=== PATIENT | female | born 1955 | race Caucasian/White ===

== ENCOUNTER 2024-05-26 19:14 | Inpatient (IN) | payer MEDICARE, BC, SELFPAY ==
--- NOTE | ~2024-05-26 | XR_ITS ---
EXAMINATION: XR CHEST CLINICAL INFORMATION: Cough. COMPARISON: None available. TECHNIQUE: Portable AP view of the chest was obtained. FINDINGS: No focal infiltrate, effusion, or pneumothorax is identified. The cardiac silhouette appears normal in size. The aorta is mildly atherosclerotic and uncoiled, suggesting hypertension. Mild mamillation of the diaphragm. Mild degenerative changes of the spine. Bilateral shoulder arthroplasties. XR/XR chest 1V IMPRESSION: No acute finding. Electronically signed by: Mario Giraldo MD 05/26/2024 09:03 PM EDT
--- NOTE | ~2024-05-26 | CT_ITS ---
EXAMINATION: CT ABDOMEN AND PELVIS WITH CONTRAST CLINICAL INFORMATION: Diffuse abdominal pain. COMPARISON: None available. TECHNIQUE: Multidetector volumetric images were obtained from the superior aspect of the liver through the pubic symphysis following administration 85 mL of Omnipaque 350 intravenous contrast. Sagittal and coronal reformatted images were obtained on the technologist's workstation. Oral contrast: No This CT examination was performed using dose optimization techniques as appropriate, variously including the following: *Automated exposure control *Adjustment of mA and/or kV according to patient size (this includes techniques or standardized protocols for targeted exams where dose is matched to indication/reason for exam; i.e. extremities or head) *Use of iterative reconstruction technique DLP: 553 mGy-cm FINDINGS: LUNG BASES: The lung bases appear clear, with no evidence of inflammation or nodules. Are normal in size. Coronary arterial calcification. No pericardial effusion. LIVER, GALLBLADDER, AND BILIARY TREE: Benign-appearing calcification in the region of segment 4/gallbladder fossa/falciform ligament, possibly iatrogenic. Suspect fatty infiltration of the liver. The liver appears unremarkable in size and shape. No focal hepatic lesion or biliary ductal dilatation is appreciated. Status post cholecystectomy. PANCREAS: Unremarkable SPLEEN: Unremarkable ADRENAL GLANDS: Unremarkable KIDNEYS AND URETERS: The kidneys appear unremarkable in size, shape, and attenuation. No hydronephrosis, hydroureter, or calculi seen. BLADDER: Unremarkable GASTROINTESTINAL TRACT: Small to moderate hiatus hernia. Mildly dilated loops of large and small bowel, some with air-fluid levels. No evidence of mechanical obstruction. Scattered colonic diverticula without evidence of diverticulitis. Redundant cecum. Normal-appearing distal ileum. Vermiform appendix not clearly identified; no obvious evidence of appendicitis. ABDOMINAL WALL: No significant hernia is appreciated. LYMPH NODES: No evidence of adenopathy by size criteria. VASCULAR: Unremarkable PELVIC VISCERA: Unremarkable OSSEOUS STRUCTURES: Decreased bone mineral density. Severe compression deformity of T12, age indeterminate. Mild retropulsion and narrowing of the spinal canal at this level. Mild osteoarthritis of the hips. Degenerative changes of the spine with lumbar dextroscoliosis and grade 1 anterolisthesis of L4 on L5. CT/CT abdomen pelvis w IV con IMPRESSION: Question mild ileus. No acute inflammatory process identified. Decreased bone mineral density. Severe compression deformity of T12, age indeterminate. Mild retropulsion and narrowing of the spinal canal at this level. Recommend clinical correlation. Additional findings, as above. Electronically signed by: Mario Giraldo MD 05/26/2024 10:09 PM EDT RP
[2024-05-26 19:23] VITALS: BP 139/95; PULSE 103; RESP 17; TEMP 36.7; O2SAT 99
[2024-05-26 19:25] VITALS: BP 133/98; BP 139/95; PULSE 105; PULSE 92; RESP 20; TEMP 36.7; O2SAT 100; O2SAT 99; BMI 24.3
[2024-05-26 20:01] LABS: IDNOW Serial# 6674DD1D; Strep A Nucleic Acid Negative (Negative)
[2024-05-26 20:02] LABS: MANUAL DIFF FLAG NO
[2024-05-26 20:03] LABS: Basophils Percent Auto 0.7 % (0-2); Hematocrit 34.7 % (37.0-47.0); Hemoglobin 12.1 g/dl (12.0-16.0); Imm Gran Abs Auto 0.01 X10*3/uL (0.00-0.03); Imm Gran Pct Auto 0.2 % (0.0-0.4); Lymphocytes Absolute Auto 1.3 X10*3/uL (1.2-4.9); Mean Corpuscular HGB Conc 34.9 g/dl (31.0-35.0); Mean Corpuscular Volume 100.3 fL (80.0-98.0); Mean Platelet Volume 10.5 fL (9.4-12.3); Monocytes Absolute Auto 0.4 X10*3/uL (0.1-1.2); Neutrophils Absolute Auto 2.4 x10*3/uL (2.0-8.3); Neutrophils Percent Auto 58.1 % (45-73); Platelet Count 115 X10*3/uL (160-400); Red Blood Count 3.46 X10*6/uL (4.20-5.50); Red Cell Distribution Width 14.3 % (11.0-16.0); White Blood Count 4.1 X10*3/uL (4.8-10.8)
--- NOTE | 2024-05-26 20:07 | PC.NURSE ---
Patient BIBA from home for evaluation on nausea, vomiting, diarrhea, pain in right and left ears, sore throat, headache, productive cough x 5 days. Patient has Hx of COPD, not on home O2. EMS established 22 G IV line in L wrist. Patient received approximately 350 mg of NS IV and Zofran 4 mg IV en route to ED. Patient is a w/c bound. She is incontinent of urine. Labs drawn and sent to lab. Patient oriented to ED room, currently resting on a stretcher bed, watching TV, call ramírez in patient's reach. Plan of care ongoing.
[2024-05-26 20:25] LABS: Alanine Aminotransferase 50 U/L (0-31); Alkaline Phosphatase 195 U/L (39-117); Anion Gap 26 (12-20); Aspartate Amino Transferase 161 U/L (5-31); Bilirubin Total 1.9 mg/dL (0.0-1.0); Blood Urea Nitrogen 13 mg/dL (9-16); Calcium 9.1 mg/dL (8.4-10.2); Carbon Dioxide 16 mmol/L (22-29); Chloride 98 mmol/L (96-108); Creatinine Clr Calc Pharmacy 58.9; Estimated Glomerular Filt Rate > 60; Glucose Random 83 mg/dL (60-115); Lipase 122 U/L (8-78); Potassium 4.5 mmol/L (3.3-5.1); Sodium 135 mmol/L (135-145); Total Protein 6.7 g/dL (6.5-8.0)
[2024-05-26 20:33] LABS: Influenza A PCR NEGATIVE (Negative); Influenza B PCR NEGATIVE (Negative); Resp Syncy Virus RNA Qual PCR NEGATIVE (Negative); SARS COV2 PCR INHOUSE NEGATIVE (Negative)
[2024-05-26 21:09] VITALS: PULSE 82; RESP 16; O2SAT 100
[2024-05-26] MEDS: Albuterol Sulfate 2.5 MG, Albuterol/Iprat 2.5/0.5MG 3 ML 3 ML INHALE (21:09)
--- NOTE | 2024-05-26 21:09 | ED.GENADULT ---
HPI - General Adult General Chief complaint: Nausea/Vomiting/Diarrhea Stated complaint: Cold/flu like symptoms, IV in place, 12 lead non d Time Seen by Provider: 05/26/24 20:05 Source: patient, RN notes reviewed and old records reviewed Mode of arrival: EMS Limitations: no limitations History of Present Illness ED Provider: Tone RIUZ narrative: 68-year-old female with past medical history significant for hypertension, COPD not on supplemental oxygen presents for evaluation of ?I do not feel well. ? Patient reports that she has felt unwell for approximately 1 week She reports bilateral ear pain, sore throat, cough, shortness of breath She reports generalized abdominal pain but nausea vomiting, diarrhea She also endorses generalized weakness. She has not had any fevers, chills She reports a history of a cholecystectomy, denies any other abdominal surgeries No other complaints or concerns at this time Related Data Home Medications ?Medication ?Instructions ?Recorded ?Confirmed albuterol sulfate 90 mcg/actuation 2 inh inhalation Q4-6H PRN Dyspnea 05/26/24 05/26/24 aerosol inhaler atenolol 50 mg tablet 50 mg PO DAILY 05/26/24 05/26/24 fluticasone 250 mcg-salmeterol 50 1 ea inhalation BID 05/26/24 05/26/24 mcg/dose blistr powdr for inhalation loperamide 2 mg capsule 2 mg PO BID 05/26/24 05/26/24 mirtazapine 15 mg tablet 15 mg PO BEDTIME 05/26/24 05/26/24 tiotropium bromide 18 mcg capsule 1 cap inhalation DAILY 05/26/24 05/26/24 with inhalation device folic acid 1 mg tablet 1 mg PO DAILY 05/27/24 05/27/24 Allergies Allergy/AdvReac Type Severity Reaction Status Date / Time prednisone [PREDNISONE] Allergy Unknown UNKNOWN Verified 05/26/24 19:27 trazodone [TRAZODONE] Allergy Unknown UNKNOWN Verified 05/26/24 19:27 ENVIROMENTAL Allergy Mild SNEEZING Uncoded 05/26/24 19:27 Review of Systems Constitutional: Constitutional: Reports body ache(s), Denies chills, Denies fever(s), Denies headache(s), Reports lethargy, Reports malaise and Reports weakness Eyes: Eyes: Denies blurry vision ENT: Reports otalgia, Denies headache(s), Reports hoarseness and Reports sore throat Cardiovascular: Cardiovascular: Denies chest pain and Reports dyspnea Respiratory: Respiratory: Reports cough, Reports pain with cough, Reports dyspnea and Reports wheezing Gastrointestinal: Gastrointestinal: Reports abdominal pain, Denies hematochezia, Denies constipation, Reports diarrhea, Reports loose stools, Reports nausea and Reports vomiting Musculoskeletal: Musculoskeletal: Denies back pain Integumentary/Breasts: Skin/Breast: Denies rash Neurologic: Denies headache(s) and Reports weakness Allergic/Immunologic: Allergic/Immunologic: Reports wheezing PMFSH Social History Social History Alcohol intake: current Alcohol intake frequency: 3 or more drinks per day Alcohol type: hard liquor Smoked in Last 30 Days: Yes Use of substances other than those prescribed or required for medical reasons: No Advance Directives: No Advance Directives Information Provided: No Do you have a plan to hurt others: No Plan Physical Exam ED Vital Signs: Vital Signs - 24 hr 05/26/24 19:23 05/26/24 19:25 05/26/24 21:09 Temperature 98.1 F 98.1 F Pulse Rate 103 H 92 82 Respiratory Rate 17 20 16 Blood Pressure 139/95 H 139/95 H Pulse Oximetry 99 100 Oxygen Delivery Method Room Air Room Air 05/26/24 21:19 Temperature Pulse Rate Respiratory Rate 16 Blood Pressure Pulse Oximetry Oxygen Delivery Method BMI result Body Mass Index 24.3 Const General: no acute distress, alert and awake Nutritional Appearance: well nourished Orientation/consciousness: patient oriented x3 HENMT Other: Mild retropharyngeal erythema, no evidence of abscess Head: Yes normocephalic and Yes atraumatic Ears: external ears normal and TM's normal bilaterally Eyes Eyelids: Yes eyelids normal Conjunctivae: conjunctivae normal Sclerae: sclerae normal Corneas: corneas normal Pupils: Equal, round and reactive pupils present EOM: EOMs intact bilaterally Neck Neck: Yes full ROM Resp Other: Mild expiratory wheeze throughout Effort & Inspection: normal respiratory effort, able to speak in complete sentences and not labored Cardio Rate: regular rate Rhythm: regular rhythm GI Palpation (GI): Soft to palpation, not firm, Tenderness to palpation present (GI) (diffusely), no guarding and not rigid Skin General skin exam: elasticity normal Neuro General: patient oriented x3 Cranial nerves: Yes Equal, round and reactive pupils present and Yes Bilaterally intact EOM present Cognition (Neuro): normal cognition Extrem Other: Moving all extremities well without any obvious deformities Course Reevaluation(s) Reevaluation #1: It was brought to my attention by respiratory staff that the patient has been making suicidal comments. The patient states that she wants a ?hospice consult because she does not want to live anymore. I asked the patient about this and she has been having passive suicidal thoughts. She does not have a plan for SI. She will be placed with a one-to-one sitter. We will evaluate the patient medically and then proceed with care team consult if medically cleared Time: 21:18 Reevaluation #2: CT findings of vertebral fracture with retropulsion are a chronic finding. The patient is wheelchair-bound secondary to a spinal cord injury Time: 22:16 Reevaluation #3: Patient's lactic acid was resulted critical at 3.8, I ordered an additional L of fluid. Her bicarb was 13 in her pH was compensated and was within normal limits. I do not feel this is related to sepsis, this is most likely related to alcoholic ketoacidosis. Given the ileus on CT scan with these findings I discussed with the hospitalist for admission. Time: 23:16 Medications Administered Discontinued Medications Generic Name Dose Route Start Last Admin Trade Name Freq PRN Reason Stop Dose Admin Albuterol Sulfate 2.5 mg/ 0 mg 05/26/24 21:06 05/26/24 21:09 Albuterol/Ipratropium 3 ml INHALE 05/26/24 21:07 1 dose ONCE ONE Administration Sodium Chloride 1,000 mls @ 999 mls/hr 05/26/24 21:00 05/26/24 22:30 Ns IV 05/26/24 22:00 Infused .Q1H1M RAY Infusion Sodium Chloride 1,000 mls @ 999 mls/hr 05/26/24 23:00 05/26/24 23:20 Ns IV 05/27/24 00:00 999 mls/hr .Q1H1M RAY Administration Iohexol 85 ml 05/26/24 21:39 05/26/24 21:40 Iohexol 350 Mg/Ml 100 Ml Infus..Btl IV 05/26/24 21:40 85 ml ONCE ONE Administration Morphine Sulfate 4 mg 05/26/24 20:54 05/26/24 21:19 Morphine Sulfate 4 Mg/Ml Cartridge IVPUSH 05/26/24 20:55 4 mg ONCE ONE Administration Protocol Ondansetron HCl 4 mg 05/26/24 20:54 05/26/24 21:19 Ondansetron Hcl 4 Mg/2 Ml Vial IVPUSH 05/26/24 20:55 4 mg ONCE ONE Administration Medical Decision Making Medical Decision Making [facility] Narrative: 68-year-old female who is appearing chronically ill presenting for evaluation of multiple complaints including ear pain, sore throat, cough shortness of breath abdominal pain, nausea vomiting. The patient's vital signs are stable. She is not hypoxic, she is afebrile. Her viral swabs are negative for flu, COVID, RSV. She is negative for strep pharyngitis. Chest x-ray shows no evidence of pneumonia or pleural effusions suggestive of CHF.. She has a mild thrombocytopenia. Unclear origin at this time, possibly related to chronic disease. Chemistries are significant for an anion gap of 26, a CO2 of 16. Unclear etiology, ALEJANDRO lactic acidosis. Ethanol level is pending. Electrolytes are within normal limits, the patient does have a mild transaminitis. T bili is elevated to 1.9. The patient is status post cholecystectomy already. Differential Diagnosis Differential Diagnoses: The differential diagnosis associated with the presentation includes COPD exacerbation Pneumonia Viral syndrome CHF Abdominal pain Enteritis Dehydration Alcoholic liver disease Lab Data 05/26/24 19:58 05/26/24 19:58 Labs: Lab Results 05/26/24 05/26/24 05/26/24 Range/Units 19:49 19:58 22:20 WBC 4.1 L (4.8-10.8) X10*3/uL RBC 3.46 L (4.20-5.50) X10*6/uL Hgb 12.1 (12.0-16.0) g/dl Hct 34.7 L (37.0-47.0) % MCV 100.3 H (80.0-98.0) fL MCH 35.0 H (27.0-33.0) pg MCHC 34.9 (31.0-35.0) g/dl RDW 14.3 (11.0-16.0) % Plt Count 115 L (160-400) X10*3/uL MPV 10.5 (9.4-12.3) fL Immature Gran % (Auto) 0.2 (0.0-0.4) % Neut % (Auto) 58.1 (45-73) % Lymph % (Auto) 31.0 (20-40) % Izard % (Auto) 10.0 (2-11) % Eos % (Auto) 0.0 (0-4) % Baso % (Auto) 0.7 (0-2) % Lymph # (Auto) 1.3 (1.2-4.9) X10*3/uL Izard # (Auto) 0.4 (0.1-1.2) X10*3/uL Eos # (Auto) 0.0 (0.0-0.4) X10*3/uL Baso # (Auto) 0.0 (0.0-0.2) X10*3/uL Abs Immat Gran (auto) 0.01 (0.00-0.03) X10*3/uL Absolute Neuts (auto) 2.4 (2.0-8.3) x10*3/uL Absolute Nucleated RBC 0.000 (0.0-0.012) X10*3/uL Nucleated RBC % (auto) 0.0 (0.0-0.2) /100WBC VBG pH (7.32-7.43) VBG pCO2 mmHg VBG pO2 mmHg VBG HCO3 (22-26) mmol/L VBG O2 Saturation % VBG Base Excess mmol/L Sodium 135 (135-145) mmol/L Potassium 4.5 (3.3-5.1) mmol/L Chloride 98 (96-108) mmol/L Carbon Dioxide 16 L (22-29) mmol/L Anion Gap 26 H (12-20) BUN 13 (9-16) mg/dL Creatinine 0.74 (0.5-1.4) mg/dL Estim Creat Clear Calc 58.9 Estimated GFR > 60 Random Glucose 83 (60-115) mg/dL Lactic Acid (0.5-2.0) mmol/L Calcium 9.1 (8.4-10.2) mg/dL Total Bilirubin 1.9 H (0.0-1.0) mg/dL AST 161 H (5-31) U/L ALT 50 H (0-31) U/L Alkaline Phosphatase 195 H (39-117) U/L Total Protein 6.7 (6.5-8.0) g/dL Albumin 4.0 (3.5-5.0) g/dL Lipase 122 H (8-78) U/L Specimen Comment Acetaminophen (<30) mcg/mL Ethyl Alcohol 127 mg/dL Influenza Type A (PCR) NEGATIVE (Negative) Influenza Type B (PCR) NEGATIVE (Negative) RSV RNA Qual (PCR) NEGATIVE (Negative) SARS-CoV-2 RNA (RT-PCR) NEGATIVE (Negative) S. pyogenes GrpA GREGORY Negative (Negative) 05/26/24 05/26/24 05/26/24 Range/Units 22:21 22:24 23:50 WBC (4.8-10.8) X10*3/uL RBC (4.20-5.50) X10*6/uL Hgb (12.0-16.0) g/dl Hct (37.0-47.0) % MCV (80.0-98.0) fL MCH (27.0-33.0) pg MCHC (31.0-35.0) g/dl RDW (11.0-16.0) % Plt Count (160-400) X10*3/uL MPV (9.4-12.3) fL Immature Gran % (Auto) (0.0-0.4) % Neut % (Auto) (45-73) % Lymph % (Auto) (20-40) % Izard % (Auto) (2-11) % Eos % (Auto) (0-4) % Baso % (Auto) (0-2) % Lymph # (Auto) (1.2-4.9) X10*3/uL Izard # (Auto) (0.1-1.2) X10*3/uL Eos # (Auto) (0.0-0.4) X10*3/uL Baso # (Auto) (0.0-0.2) X10*3/uL Abs Immat Gran (auto) (0.00-0.03) X10*3/uL Absolute Neuts (auto) (2.0-8.3) x10*3/uL Absolute Nucleated RBC (0.0-0.012) X10*3/uL Nucleated RBC % (auto) (0.0-0.2) /100WBC VBG pH 7.39 (7.32-7.43) VBG pCO2 22 mmHg VBG pO2 102 mmHg VBG HCO3 13 L (22-26) mmol/L VBG O2 Saturation 99.0 % VBG Base Excess -8.8 mmol/L Sodium (135-145) mmol/L Potassium (3.3-5.1) mmol/L Chloride (96-108) mmol/L Carbon Dioxide (22-29) mmol/L Anion Gap (12-20) BUN (9-16) mg/dL Creatinine (0.5-1.4) mg/dL Estim Creat Clear Calc Estimated GFR Random Glucose (60-115) mg/dL Lactic Acid 3.8 H* (0.5-2.0) mmol/L Calcium (8.4-10.2) mg/dL Total Bilirubin (0.0-1.0) mg/dL AST (5-31) U/L ALT (0-31) U/L Alkaline Phosphatase (39-117) U/L Total Protein (6.5-8.0) g/dL Albumin (3.5-5.0) g/dL Lipase (8-78) U/L Specimen Comment DELAY Acetaminophen < 3 (<30) mcg/mL Ethyl Alcohol mg/dL Influenza Type A (PCR) (Negative) Influenza Type B (PCR) (Negative) RSV RNA Qual (PCR) (Negative) SARS-CoV-2 RNA (RT-PCR) (Negative) S. pyogenes GrpA GREGORY (Negative) Radiology Impression Discussion of test interpretation with radiology: I have reviewed the radiologist's reading. Radiologist Impression: CT/CT abdomen pelvis w IV con IMPRESSION: Question mild ileus. No acute inflammatory process identified. Decreased bone mineral density. Severe compression deformity of T12, age indeterminate. Mild retropulsion and narrowing of the spinal canal at this level. Recommend clinical correlation. Additional findings, as above. Discharge Plan Discharge Clinical Impression: High anion gap metabolic acidosis, Alcohol use disorder Patient Disposition: Admitted As Inpatient Print Language: Malaysian
[2024-05-26 21:19] VITALS: RESP 16
[2024-05-26] MEDS: Morphine Sulfate 4 MG/ML CARTRIDGE IVPUSH (21:19)
[2024-05-26] MEDS: ondansetron HCL 4 MG/2 ML VIAL IVPUSH (21:19)
[2024-05-26] MEDS: 0.9 % Sodium Chloride 1,000 ML 999 ML IV ×2 (21:20→23:20)
[2024-05-26] MEDS: iohexoL 350 MG/ML 100 ML INFUS..BTL 85 ML IV (21:40)
[2024-05-26 22:28] LABS: Venous Blood Gas Refer to POC result
[2024-05-26 22:29] LABS: VBG Base Excess -8.8 mmol/L; VBG HCO3 13 mmol/L (22-26); VBG pCO2 22 mmHg; VBG pH 7.39 (7.32-7.43); VBG pO2 102 mmHg
[2024-05-26 22:43] LABS: Ethanol 127 mg/dL
[2024-05-26 22:46] LABS: Lactic Acid 3.8 mmol/L (0.5-2.0)
[2024-05-26 22:53] LABS: Acetaminophen LAB < 3 mcg/mL (<30)
[2024-05-26 23:51] LABS: Delay - Chemistry DELAY
[2024-05-27] VITALS (8 sets, daily range): BP systolic 125–178; BP diastolic 69–95; PULSE 75–88; RESP 16–20; TEMP 36.5–36.9; O2SAT 95–100
[2024-05-27 00:27] LABS: Reflex Lactate? Lactic Acid Added
[2024-05-27 00:42] LABS: Beta-Hydroxybutyrate 5.67 mmol/L (0.02-0.27)
[2024-05-27] MEDS: Thiamine HCL 500 MG in 0.9 % Sodium Chloride 100 ML 210 MG IV (01:28)
--- NOTE | 2024-05-27 01:58 | P.HPHOSP_ITS ---
History of Present Illness Date of Service: 05/27/24 Chief Complaint: Not feeling well This is a 68-year-old female with pertinent history of alcohol use disorder, hypertension, COPD not on home oxygen, mood disorder, tobacco use disorder who presents to the emergency department for evaluation of not feeling well . Patient has multiple complaints and states she has not been feeling well for a week. States she has had upper respiratory symptoms with runny nose, sore throat and headache. Soon it progressed and patient started having dyspnea which was worse with exertion and wheezing. Has associated cough with minimal clear sputum production. Patient admits generalized weakness with poor p.o. intake. States her last alcoholic drink was 1 day prior to presentation. No history of alcohol withdrawal seizures. No fever, chills, chest discomfort, palpitations, abdominal pain, changes in urinary or bowel habits. In the emergency department, patient was initiated on phenobarb protocol. Also found to have anion gap metabolic acidosis. Review of Systems 2 Constitutional: Constitutional: Reports fatigue, Reports lethargy, Reports malaise, Reports poor appetite and Reports weakness Cardiovascular: Cardiovascular: Reports dyspnea on exertion Respiratory: Respiratory: Reports cough, Reports dyspnea on exertion and Reports wheezing Gastrointestinal: Gastrointestinal: Reports no additional gastrointestinal complaints Genitourinary: Genitourinary: Reports no additional female genitourinary complaints Neurologic: Reports weakness Endocrine: Endocrine: Reports fatigue Allergic/Immunologic: Allergic/Immunologic: Reports wheezing [facility] Medical History (Updated 05/27/24 @ 03:00 by Edi Mancini MD) Mood disorder Tobacco use disorder COPD (chronic obstructive pulmonary disease) Alcohol use disorder Hypertension Pertinent family history: No family history of early CAD Social History Alcohol intake: current Alcohol intake frequency: 3 or more drinks per day Alcohol type: hard liquor Smoked in Last 30 Days: Yes Use of substances other than those prescribed or required for medical reasons: No Advance Directives: No Advance Directives Information Provided: No Do you have a plan to hurt others: No Plan Meds Allergies Allergy/AdvReac Type Severity Reaction Status Date / Time prednisone [PREDNISONE] Allergy Unknown UNKNOWN Verified 05/26/24 19:27 trazodone [TRAZODONE] Allergy Unknown UNKNOWN Verified 05/26/24 19:27 ENVIROMENTAL Allergy Mild SNEEZING Uncoded 05/26/24 19:27 Active Medications: Current Medications Dextrose/Lactated Ringer's (D5lr) 1,000 mls @ 125 mls/hr IVCONT .Q8H ONE Stop: 05/27/24 09:55 Pharmacy Consult (Consult Rx Etoh Phenob Im/Po) 1 each MISCELLANE ONCE PRN; Protocol PRN Reason: Consult order Home Medications ?Medication ?Instructions ?Recorded ?Confirmed ?Last Taken ?Type albuterol sulfate 90 mcg/actuation 2 inh inhalation Q4-6H PRN Dyspnea 05/26/24 05/26/24 Unknown History aerosol inhaler atenolol 50 mg tablet 50 mg PO DAILY 05/26/24 05/26/24 Unknown History fluticasone 250 mcg-salmeterol 50 1 ea inhalation BID 05/26/24 05/26/24 Unknown History mcg/dose blistr powdr for inhalation loperamide 2 mg capsule 2 mg PO BID 05/26/24 05/26/24 Unknown History mirtazapine 15 mg tablet 15 mg PO BEDTIME 05/26/24 05/26/24 Unknown History tiotropium bromide 18 mcg capsule 1 cap inhalation DAILY 05/26/24 05/26/24 Unknown History with inhalation device folic acid 1 mg tablet 1 mg PO DAILY 05/27/24 05/27/24 Unknown History Physical Exam 2 Vital Signs and Narrative: Vital Signs: Last Vital Signs Temp 98.1 F 05/26/24 19:25 Pulse 82 05/26/24 21:09 Resp 16 05/26/24 21:19 BP 139/95 H 05/26/24 19:25 Pulse Ox 100 05/26/24 19:25 O2 Del Method Room Air 05/26/24 19:25 BMI result Body Mass Index 24.3 Middle-aged female lying in bed in mild distress Neck supple, no JVD Regular rate and rhythm, S1-S2 heard Bilateral wheezing present Abdomen soft nontender, no guarding, no rigidity Patient is awake, alert and oriented to self, place, time and person ; no focal motor deficit Psych: Normal mood No pedal edema Results Labs 05/27/24 02:29 05/26/24 19:58 Labs: Laboratory Results - last 24 hr 05/26/24 05/26/24 05/26/24 19:49 19:58 22:20 MCV 100.3 H MCH 35.0 H MCHC 34.9 RDW 14.3 Plt Count 115 L MPV 10.5 Immature Gran % (Auto) 0.2 Neut % (Auto) 58.1 Lymph % (Auto) 31.0 Aiken % (Auto) 10.0 Eos % (Auto) 0.0 Baso % (Auto) 0.7 Lymph # (Auto) 1.3 Aiken # (Auto) 0.4 Eos # (Auto) 0.0 Baso # (Auto) 0.0 Abs Immat Gran (auto) 0.01 Absolute Neuts (auto) 2.4 Absolute Nucleated RBC 0.000 Nucleated RBC % (auto) 0.0 VBG pH VBG pCO2 VBG pO2 VBG HCO3 VBG O2 Saturation VBG Base Excess Anion Gap 26 H Estim Creat Clear Calc 58.9 Estimated GFR > 60 Random Glucose 83 Lactic Acid Calcium 9.1 Total Bilirubin 1.9 H AST 161 H ALT 50 H Alkaline Phosphatase 195 H Total Protein 6.7 Albumin 4.0 Lipase 122 H Beta-Hydroxybutyrate 5.67 H Specimen Comment Acetaminophen Ethyl Alcohol 127 Influenza Type A (PCR) NEGATIVE Influenza Type B (PCR) NEGATIVE RSV RNA Qual (PCR) NEGATIVE SARS-CoV-2 RNA (RT-PCR) NEGATIVE S. pyogenes GrpA GREGORY Negative 05/26/24 05/26/24 05/26/24 22:21 22:24 23:50 MCV MCH MCHC RDW Plt Count MPV Immature Gran % (Auto) Neut % (Auto) Lymph % (Auto) Aiken % (Auto) Eos % (Auto) Baso % (Auto) Lymph # (Auto) Aiken # (Auto) Eos # (Auto) Baso # (Auto) Abs Immat Gran (auto) Absolute Neuts (auto) Absolute Nucleated RBC Nucleated RBC % (auto) VBG pH 7.39 VBG pCO2 22 VBG pO2 102 VBG HCO3 13 L VBG O2 Saturation 99.0 VBG Base Excess -8.8 Anion Gap Estim Creat Clear Calc Estimated GFR Random Glucose Lactic Acid 3.8 H* Calcium Total Bilirubin AST ALT Alkaline Phosphatase Total Protein Albumin Lipase Beta-Hydroxybutyrate Specimen Comment DELAY Acetaminophen < 3 Ethyl Alcohol Influenza Type A (PCR) Influenza Type B (PCR) RSV RNA Qual (PCR) SARS-CoV-2 RNA (RT-PCR) S. pyogenes GrpA GREGORY Imaging Radiologist's Impressions: Impressions Chest X-Ray 05/26/24 19:35 IMPRESSION: No acute finding. Electronically signed by: Mario Giraldo MD 05/26/2024 09:03 PM EDT RP Abdomen/Pelvis CT 05/26/24 20:54 IMPRESSION: Question mild ileus. No acute inflammatory process identified. Decreased bone mineral density. Severe compression deformity of T12, age indeterminate. Mild retropulsion and narrowing of the spinal canal at this level. Recommend clinical correlation. Additional findings, as above. Electronically signed by: Mario Giraldo MD 05/26/2024 10:09 PM EDT RP Assessment and Plan (1) COPD exacerbation: Status: Acute (2) Alcoholic ketoacidosis: Status: Acute (3) Lactic acidosis: Status: Acute (4) Alcohol withdrawal: Status: Acute Plan This is a 68-year-old female with pertinent history of alcohol use disorder, hypertension, COPD not on home oxygen, mood disorder, tobacco use disorder who presents to the emergency department for evaluation of not feeling well . #. Acute exacerbation of COPD: Initiating systemic steroids, scheduled and p.r.n. DuoNebs. Continue home inhaler #. Alcoholic ketoacidosis: Initiating dextrose infused fluids. Repeat blood gas in a.m. #. Acute lactic acidosis: No sepsis. Albuterol use. Resuscitated with IV crystalloids #. Alcohol use disorder with concerns for alcohol withdrawal: Initiated on phenobarb protocol in the ER. Monitor CIWA. Consulting Addiction Team. Also initiated thiamine, folic acid #. Macrocytosis, thrombocytopenia and elevated liver enzymes due to alcohol use #. Hypertension: On atenolol #. Tobacco use disorder: Counseled regarding cessation. Nicotine patch while in the hospital #. Mood disorder: Continue home mood stabilizers Med rec pending DVT prophylaxis: Lovenox Full code Admit as inpatient and will require two night minimum hospital stay for monitoring of respiratory status, correction of acid-based disturbance, treatment of alcohol withdrawal (as above), which is not possible in a lesser acute setting. Quality Stroke Does the patient have a stroke diagnosis?: No VTE Prior VTE?: No VTE Risk Level:: Medical - moderate - high VTE Device Contraindication: Treatment Not Indicated VTE Drug Contraindication: N/A - Med Ordered
[2024-05-27] MEDS: Dextrose 5 % and Lactated Ring 1,000 ML 125 ML IVCONT (02:11)
[2024-05-27 02:32] LABS: MANUAL DIFF FLAG NO
[2024-05-27 02:34] LABS: Basophils Percent Auto 0.5 % (0-2); Eosinophils Percent Auto 0.3 % (0-4); Hematocrit 32.1 % (37.0-47.0); Hemoglobin 11.2 g/dl (12.0-16.0); Imm Gran Abs Auto 0.01 X10*3/uL (0.00-0.03); Imm Gran Pct Auto 0.3 % (0.0-0.4); Lymphocytes Absolute Auto 0.9 X10*3/uL (1.2-4.9); Lymphocytes Percent Auto 24.1 % (20-40); Mean Corpuscular HGB Conc 34.9 g/dl (31.0-35.0); Mean Corpuscular Hemoglobin 35.1 pg (27.0-33.0); Mean Corpuscular Volume 100.6 fL (80.0-98.0); Mean Platelet Volume 10.7 fL (9.4-12.3); Monocytes Absolute Auto 0.4 X10*3/uL (0.1-1.2); Monocytes Percent Auto 9.5 % (2-11); Neutrophils Absolute Auto 2.4 x10*3/uL (2.0-8.3); Neutrophils Percent Auto 65.3 % (45-73); Platelet Count 113 X10*3/uL (160-400); Red Blood Count 3.19 X10*6/uL (4.20-5.50); Red Cell Distribution Width 14.1 % (11.0-16.0); White Blood Count 3.7 X10*3/uL (4.8-10.8)
[2024-05-27 02:49] LABS: Anion Gap 24 (12-20); Blood Urea Nitrogen 12 mg/dL (9-16); Calcium 8.7 mg/dL (8.4-10.2); Carbon Dioxide 15 mmol/L (22-29); Chloride 100 mmol/L (96-108); Creatinine Clr Calc Pharmacy 62.3; Estimated Glomerular Filt Rate > 60; Glucose Random 97 mg/dL (60-115); Potassium 3.8 mmol/L (3.3-5.1); Sodium 135 mmol/L (135-145)
[2024-05-27 02:51] LABS: ~Lactic Acid-LAB USE ONLY 3.8 mmol/L (0.5-2.0)
[2024-05-27] MEDS: PHENobarbitaL sodium 130 MG/ML IM ONCE 191 MG IM (03:07)
[2024-05-27] MEDS: diphenhydrAMINE HCL 25 MG CAPSULE 50 MG PO (03:07)
[2024-05-27] MEDS: Nicotine 14 MG PATCH.TD24 TRANSDERMA (04:30)
[2024-05-27] MEDS: Azithromycin 500 MG in 0.9 % Sodium Chloride 250 ML 125 MG IV ×2 (04:30→22:52)
[2024-05-27] MEDS: methylPREDNISolone Sod Succ 40 MG/ML VIAL IVPUSH ×2 (04:30→13:06)
[2024-05-27 04:31] LABS: Reflex Lactate? 2 Y
[2024-05-27 05:24] LABS: Venous Blood Gas Refer to POC result
[2024-05-27 05:28] LABS: VBG Base Excess -7.5 mmol/L; VBG HCO3 16 mmol/L (22-26); VBG pCO2 28 mmHg; VBG pH 7.36 (7.32-7.43); VBG pO2 173 mmHg
[2024-05-27 05:38] LABS: ~Lactic Acid-LAB USE ONLY 2.6 mmol/L (0.5-2.0)
[2024-05-27] MEDS: PHENobarbitaL sodium 130 MG/ML VIAL IM Q3Hx2 143 MG IM ×2 (07:37→10:52)
[2024-05-27] MEDS: Albuterol/Iprat 2.5/0.5MG 3 ML AMPUL.NEB INHALE ×3 (07:39→15:07)
[2024-05-27] MEDS: 0.9 % Sodium Chloride Flush 3 ML SYRINGE IVFLUSH (07:40)
[2024-05-27 09:25] LABS: Magnesium 1.5 mg/dL (1.6-2.6)
[2024-05-27] MEDS: Multivitamin TABLET 1 TAB PO (09:37)
[2024-05-27] MEDS: Folic Acid 1 MG TABLET PO (09:37)
[2024-05-27] MEDS: Thiamine HCL 100 MG TABLET PO (09:37)
[2024-05-27] MEDS: Enoxaparin Sodium 40 MG/0.4 ML SYRINGE SUBCUT (09:37)
--- NOTE | 2024-05-27 10:22 | PHA.MEDREC ---
Addendum entered by Melly Kumar [facility] 05/27/24 10:33: reviewed by [facility]. Called buffy to confirm if pt was still supposed to be on acamprosate, said she got it for 3 months and then hasn't filled since March 2024 and has no refills left on it, left that unconfirmed. Original Note: Pharmacy Consult ? Medication Reconciliation Pharmacy has reviewed the medication reconciliation done by nursing. Patient was a poor historian she didn't know any of her medication. patient's is blind so he can't see patient medications. Utilized claim to confirm med list.
--- NOTE | 2024-05-27 11:28 | PM.EVENT ---
Event Note Date of Service: 05/27/24 Event Note: Day hospitalist update S: c/o nausea + depression cough improved O: Temp Pulse Resp BP Pulse Ox O2 Del Method 98.2 F 81 18 134/69 100 Room Air 05/27/24 09:41 05/27/24 11:19 05/27/24 11:19 05/27/24 09:41 05/27/24 09:41 05/27/24 09:41 Gen: in no acute distress HEENT: sclera anicteric, moist mucus membranes Neck: supple Lungs: diminished Heart: regular rate and rhythm, no murmurs Abd: soft, non-tender, non-distended Ext: no edema Skin: warm/well-perfused Neuro: alert and oriented x3, no focal findings Psych: restricted affect A/P: d1 8-year-old female with pertinent history of alcohol use disorder, hypertension, COPD not on home oxygen, mood disorder, tobacco use disorder who presents to the emergency department for evaluation of not feeling well . d1 68yo F with AUD, HTN, COPD, mood disorder, tobacco abuse presenting with malaise + cough, dyspnea, wheeze; found to have EtOH withdrawal + ketoacidosis acute COPD exacerbation - continue steroids, standing/prn nebs, home inhalers alcoholic ketoacidosis acute lactic acidosis due to alcohol - continue D5LR, repeat BMP in AM AUD with withdrawal - phenobarbital taper, thiamine, folate, Addiction Medicine consultation alcoholic hepatitis - mild; continue to monitor LFTs thrombocytopenia - mild; due to myelosuppression from EtOH; continue monitor CBC HTN - atenolol tobacco abuse - NRT depression with SI - continue mirtazapine; CARE Team consult when medically cleared VTE ppx - LMWH dispo - TBD In my clinical judgment, the patient requires continued hospitalization for the following reasons: acidosis, inpt EtOH withdrawal treatment Time Spent With Patient Time: Total time managing care of this patient today ____ minutes.
[2024-05-27 12:18] LABS: Amphetamine Screen Urine Not Detected (Not Detect); Barbiturates, Urine POSITIVE (Not Detect); Benzodiazepines Screen Urine Not Detected (Not Detect); Buprenorphine Scr Not Detected (Not Detect); Cannabinoid Screen Urine Not Detected (Not Detect); Cocaine Screen Urine Not Detected (Not Detect); Fentanyl, urine Not Detected (Not Detect); Methadone Screen, Urine Not Detected (Not Detect); Opiate Screen Urine POSITIVE (Not Detect); Oxycodone Screen Urine Not Detected (Not Detect); Phencyclidine Screen Urine Not Detected (Not Detect)
[2024-05-27] MEDS: Dextrose 5 % and Lactated Ring 1,000 ML 80 ML IVCONT (13:06)
--- NOTE | 2024-05-27 17:05 | MHC.EDTECH ---
Patient cleaned and repositioned
[2024-05-27] MEDS: PHENobarbitaL 30 MG TABLET PO (18:45)
[2024-05-27] MEDS: Mirtazapine 15 MG TABLET PO (22:52)
[2024-05-27] MEDS: Loperamide HCl 2 MG CAPSULE PO (22:52)
[2024-05-28] MEDS: Acetaminophen 325 MG TABLET 650 MG PO (00:15)
[2024-05-28] MEDS: Dextrose 5 % and Lactated Ring 1,000 ML 80 ML IVCONT ×2 (00:15→13:33)
[2024-05-28] MEDS: Melatonin 3 MG TABLET 6 MG PO (00:15)
[2024-05-28 01:50] VITALS: BMI 28.2
[2024-05-28 03:00] VITALS: BP 129/61; PULSE 67; RESP 16; TEMP 36.3; O2SAT 95
[2024-05-28 05:49] LABS: Hematocrit 31.1 % (37.0-47.0); Mean Corpuscular HGB Conc 35.4 g/dl (31.0-35.0); Mean Corpuscular Hemoglobin 34.3 pg (27.0-33.0); Mean Corpuscular Volume 96.9 fL (80.0-98.0); Mean Platelet Volume 11.2 fL (9.4-12.3); NRBC Pct Auto 0.3 /100WBC (0.0-0.2); Red Blood Count 3.21 X10*6/uL (4.20-5.50)
[2024-05-28 05:51] LABS: Platelet Count 97 X10*3/uL (160-400)
[2024-05-28 05:52] LABS: Venous Blood Gas Refer to POC result
[2024-05-28 06:00] LABS: VBG Base Excess 6.8 mmol/L; VBG HCO3 27 mmol/L (22-26); VBG pCO2 25 mmHg; VBG pH 7.62 (7.32-7.43); VBG pO2 230 mmHg
[2024-05-28 06:36] LABS: Alanine Aminotransferase 67 U/L (0-31); Albumin Level 3.3 g/dL (3.5-5.0); Alkaline Phosphatase 158 U/L (39-117); Anion Gap 17 (12-20); Aspartate Amino Transferase 215 U/L (5-31); Bilirubin Total 2.3 mg/dL (0.0-1.0); Blood Urea Nitrogen 7 mg/dL (9-16); Calcium 9.2 mg/dL (8.4-10.2); Carbon Dioxide 21 mmol/L (22-29); Chloride 95 mmol/L (96-108); Creatinine Clr Calc Pharmacy 64.9; Estimated Glomerular Filt Rate > 60; Glucose Random 223 mg/dL (60-115); Magnesium 1.4 mg/dL (1.6-2.6); Potassium 3.3 mmol/L (3.3-5.1); Sodium 130 mmol/L (135-145); Total Protein 5.9 g/dL (6.5-8.0)
[2024-05-28] MEDS: Magnesium Sulfate/H2O 2 GM/50 ML PIGGYBACK IV (06:48)
[2024-05-28 06:55] LABS: Folate 6.2 ng/mL (> or = 4.0); Vitamin B12 317 pg/mL (200-900)
[2024-05-28 07:47] VITALS: BP 149/67; PULSE 77; RESP 12; TEMP 36.7; O2SAT 99
[2024-05-28] MEDS: 0.9 % Sodium Chloride Flush 3 ML SYRINGE IVFLUSH ×2 (07:59→17:06)
[2024-05-28 09:35] VITALS: BP 158/69; PULSE 77
[2024-05-28] MEDS: Folic Acid 1 MG TABLET PO (09:35)
[2024-05-28] MEDS: Loperamide HCl 2 MG CAPSULE PO ×2 (09:35→20:58)
[2024-05-28] MEDS: Thiamine HCL 100 MG TABLET PO (09:35)
[2024-05-28] MEDS: atenoloL 50 MG TABLET PO (09:35)
[2024-05-28] MEDS: PHENobarbitaL 30 MG TABLET PO ×2 (09:35→20:57)
[2024-05-28] MEDS: Multivitamin TABLET 1 TAB PO (09:35)
[2024-05-28] MEDS: Magnesium Oxide 400 MG TABLET PO ×2 (09:40→17:07)
[2024-05-28] MEDS: Enoxaparin Sodium 40 MG/0.4 ML SYRINGE SUBCUT (09:40)
[2024-05-28] MEDS: Nicotine 14 MG PATCH.TD24 TRANSDERMA (09:43)
--- NOTE | 2024-05-28 10:39 | HO.PM.IMPN ---
Subjective Subjective Date of Service: 05/28/24 Interval History: c/o nausea, not tolerating solids c/o burning epigastric pain breathing improved Review of Systems Review of Systems: Yes all other systems are reviewed and are negative Physical Exam Vital Signs: Vital Signs: Last Vital Signs Temp 98.1 F 05/28/24 07:47 Pulse 77 05/28/24 09:35 Resp 12 05/28/24 07:47 BP 158/69 H 05/28/24 09:35 Pulse Ox 99 05/28/24 07:47 O2 Del Method Room Air 05/28/24 07:47 BMI result Body Mass Index 28.2 Gen: in no acute distress HEENT: sclera anicteric, moist mucus membranes Neck: supple Lungs: diminished Heart: regular rate and rhythm, no murmurs Abd: soft, tender epigastrium, no rebound, non-distended Ext: no edema Skin: warm/well-perfused Neuro: alert and oriented x3, no focal findings Psych: restricted affect Objective Data Active Medications Acetaminophen (Acetaminophen 325 Mg Tablet) 650 mg PO Q6H PRN PRN Reason: Pain, Mild (Pain Scale 1-3), fever or headache Last Admin: 05/28/24 00:15 Dose: 650 mg Documented By: SUSANNE Albuterol Sulfate (Albuterol Sulfate 90 Mcg 8 Gm Inhaler) 2 puff INHALE Q4H PRN PRN Reason: Dyspnea Albuterol/Ipratropium (Albuterol/Iprat 2.5/0.5mg 3 Ml Ampul.Neb) 3 ml INHALE Q4H PRN PRN Reason: Wheezing Atenolol (Atenolol 50 Mg Tablet) 50 mg PO DAILY [facility]; Protocol Last Admin: 05/28/24 09:35 Dose: 50 mg Documented By: HERNAN Calcium Carbonate (Calcium Carbonate 750 Mg Tab.Chew) 750 mg PO Q4H PRN PRN Reason: Heartburn Enoxaparin Sodium (Enoxaparin Sodium 40 Mg/0.4 Ml Syringe) 40 mg SUBCUT Q24H [facility] Last Admin: 05/28/24 09:40 Dose: 40 mg Documented By: HERNAN Fluticasone/Vilanterol (Fluticasone/Vilanterol 100/25 Blst.W.Dev) 1 puff INHALE RDAILY [facility] Folic Acid (Folic Acid 1 Mg Tablet) 1 mg PO DAILY [facility] Last Admin: 05/28/24 09:35 Dose: 1 mg Documented By: HERNAN Folic Acid (Folic Acid 1 Mg Tablet) 1 mg PO DAILY [facility] Last Admin: 05/28/24 10:15 Dose: Not Given Documented By: HERNAN Non-Admin Reason: already given Azithromycin 500 mg/ Sodium (Chloride) 250 mls @ 125 mls/hr IV 2200 [facility] Last Infusion: 05/28/24 01:15 Dose: Infused Documented By: SUSANNE Dextrose/Lactated Ringer's (D5lr) 1,000 mls @ 80 mls/hr IVCONT .[id number] [facility] Last Admin: 05/28/24 00:15 Dose: 80 mls/hr Documented By: SUSANNE Loperamide HCl (Loperamide Hcl 2 Mg Capsule) 2 mg PO BID [facility] Last Admin: 05/28/24 09:35 Dose: 2 mg Documented By: HERNAN Magnesium Hydroxide (Milk Of Magnesia 30 Ml Oral.Susp) 30 ml PO DAILY PRN PRN Reason: Constipation Magnesium Oxide (Magnesium Oxide 400 Mg Tablet) 400 mg PO BIDPC [facility] Last Admin: 05/28/24 09:40 Dose: 400 mg Documented By: HERNAN Melatonin (Melatonin 3 Mg Tablet) 6 mg PO BEDTIME PRN PRN Reason: Insomnia Last Admin: 05/28/24 00:15 Dose: 6 mg Documented By: SUSANNE Methylprednisolone Sodium Succinate (Methylprednisolone Sod Succ 40 Mg/Ml Vial) 40 mg IVPUSH Q24H [facility] Last Admin: 05/27/24 13:06 Dose: 40 mg Documented By: AVA Mirtazapine (Mirtazapine 15 Mg Tablet) 15 mg PO BEDTIME [facility] Last Admin: 05/27/24 22:52 Dose: 15 mg Documented By: SUSANNE Multivitamins/Vitamin C (Multivitamin Tablet) 1 tab PO DAILY [facility] Last Admin: 05/28/24 09:35 Dose: 1 tab Documented By: HERNAN Nicotine (Nicotine 14 Mg Patch.Td24) 14 mg TRANSDERMA DAILY [facility] Last Admin: 05/28/24 09:43 Dose: 14 mg Documented By: HERNAN Ondansetron HCl (Ondansetron Hcl 4 Mg/2 Ml Vial) 4 mg IVPUSH Q4H PRN PRN Reason: Nausea and Vomiting Pantoprazole Sodium (Pantoprazole Sodium 40 Mg/10 Ml Vial) 40 mg IVPUSH BID@0630,1630 [facility] Pharmacy Consult (Consult Rx Etoh Phenob Im/Po) 1 each MISCELLANE ONCE PRN; Protocol PRN Reason: Consult order Phenobarbital (Phenobarbital 30 Mg Tablet) 30 mg PO BID [facility]; Protocol Stop: 05/29/24 09:01 Last Admin: 05/28/24 09:35 Dose: 30 mg Documented By: HERNAN Phenobarbital (Phenobarbital 15 Mg Tablet) 15 mg PO BID [facility]; Protocol Stop: 05/31/24 09:01 Phenobarbital (Phenobarbital 15 Mg Tablet) 15 mg PO DAILY [facility]; Protocol Stop: 06/02/24 09:01 Sodium Chloride (0.9 % Sodium Chloride Flush 3 Ml Syringe) 3 ml IVFLUSH QSHIFT [facility] Last Admin: 05/28/24 07:59 Dose: 3 ml Documented By: HERNAN Thiamine HCl (Thiamine Hcl 100 Mg Tablet) 100 mg PO DAILY [facility] Last Admin: 05/28/24 09:35 Dose: 100 mg Documented By: HERNAN Tiotropium [place] (Tiotropium [place] 2.5 Mcg 1 Puff/2.5 Mcg Mist.Inhal) 2 puff INHALE RDAILY [facility] Labs 05/28/24 05:32 05/28/24 05:32 Labs: Laboratory Results - last 24 hr 05/27/24 05/28/24 05/28/24 11:57 05:32 05:46 MCV 96.9 MCH 34.3 H MCHC 35.4 H RDW 13.0 Plt Count 97 L MPV 11.2 Absolute Nucleated RBC 0.020 H Nucleated RBC % (auto) 0.3 H VBG pH 7.62 H* VBG pCO2 25 VBG pO2 230 VBG HCO3 27 H VBG O2 Saturation 99.0 VBG Base Excess 6.8 Anion Gap 17 Estim Creat Clear Calc 64.9 Estimated GFR > 60 Random Glucose 223 H Calcium 9.2 Magnesium 1.4 L* Total Bilirubin 2.3 H AST 215 H ALT 67 H Alkaline Phosphatase 158 H Total Protein 5.9 L Albumin 3.3 L Vitamin B12 317 Folate 6.2 Urine Color Cancelled Urine Appearance Cancelled Urine pH Cancelled Ur Specific [place] Cancelled Urine Protein Cancelled Urine Glucose (UA) Cancelled Urine Ketones Cancelled Urine Blood Cancelled Urine Nitrite Cancelled Ur Leukocyte Esterase Cancelled Urine RBC Cancelled Urine WBC Cancelled Urine WBC Clumps Cancelled Ur Squamous Epith Cells Cancelled Ur Transition Epith Cell Cancelled Ur Renal Epithelial Cell Cancelled Calcium Oxalate Crystal Cancelled Leucine Crystals Cancelled Cystine Crystals Cancelled Tyrosine Crystals Cancelled Other Crystals Cancelled Urine Bacteria Cancelled Urine Parasites Cancelled Bilirubin Casts Cancelled Epithelial Casts Cancelled Fatty Casts Cancelled Hyaline Casts Cancelled Granular Casts Cancelled Waxy Casts Cancelled Broad Casts Cancelled RBC Casts Cancelled WBC Casts Cancelled Other Casts Cancelled Urine Trichomonas Cancelled Urine Yeast Cancelled Urine Opiates Screen POSITIVE H Ur Buprenorphine Scrn Not Detected Ur Oxycodone Screen Not Detected Urine Methadone Screen Not Detected Urine Fentanyl Screen Not Detected Ur Barbiturates Screen POSITIVE H Ur Phencyclidine Scrn Not Detected Ur Amphetamines Screen Not Detected U Benzodiazepines Scrn Not Detected Urine Cocaine Screen Not Detected U Marijuana (THC) Screen Not Detected Microbiology Microbiology Results: Microbiology 05/26/24 22:20 Blood Culture - Preliminary Blood - Venous No growth after 24 hours. 05/26/24 22:20 Blood Culture - Preliminary Blood - Venous No growth after 24 hours. Assessment and Plan (1) Alcohol withdrawal: Status: Acute Plan d2 68yo F with AUD, HTN, COPD, mood disorder, tobacco abuse presenting with malaise + cough, dyspnea, wheeze; found to have EtOH withdrawal + ketoacidosis acute COPD exacerbation - continue steroids, prn nebs, home inhalers hypoMg - replete IV, recheck level in AM alcoholic ketoacidosis acute lactic acidosis due to alcohol - acidosis resolved alcoholic gastritis - IV PPI AUD with withdrawal - continue phenobarbital taper, thiamine, folate; Addiction Medicine consultation pending alcoholic hepatitis - mild; continue to monitor LFTs thrombocytopenia - mild; due to myelosuppression from EtOH; continue to monitor CBC HTN - atenolol tobacco abuse - NRT depression with SI - continue mirtazapine; CARE Team consult when medically cleared VTE ppx - LMWH dispo - TBD In my clinical judgment, the patient requires continued hospitalization for the following reasons: electrolyte abnormalities, inpt EtOH withdrawal treatment Total time managing care of this patient today: 40 minutes. Quality Stroke Does the patient have a stroke diagnosis?: No VTE Prior VTE?: No VTE Risk Level:: Medical - moderate - high VTE Device Contraindication: Treatment Not Indicated VTE Drug Contraindication: N/A - Med Ordered
[2024-05-28] MEDS: Pantoprazole Sodium 40 MG/10 ML VIAL IVPUSH ×2 (10:45→17:05)
[2024-05-28] MEDS: methylPREDNISolone Sod Succ 40 MG/ML VIAL IVPUSH (13:31)
[2024-05-28 15:21] VITALS: BP 127/63; PULSE 68; RESP 14; TEMP 36.6; O2SAT 98
--- NOTE | 2024-05-28 15:46 | MHC.RECOVRN ---
Attempted to meet with pt after pt scored positive on AUDIT C. Pt confused. ACS to return at a later time. Li Smith APRN, aware.
[2024-05-28 19:44] VITALS: BP 114/56; PULSE 66; RESP 18; TEMP 36.8; O2SAT 98
[2024-05-28] MEDS: Mirtazapine 15 MG TABLET PO (20:58)
[2024-05-28] MEDS: Azithromycin 500 MG in 0.9 % Sodium Chloride 250 ML 125 MG IV (21:05)
[2024-05-28] MEDS: guaiFEN/Codeine SF 200/20/10ML 10 ML LIQUID 5 ML PO (21:47)
[2024-05-28] MEDS: Throat Lozenge, Medicated LOZENGE 1 LOZENGE MUCOUS MEM (21:47)
[2024-05-29 03:24] VITALS: BP 113/57; PULSE 57; RESP 18; TEMP 36.3; O2SAT 98
[2024-05-29] MEDS: Dextrose 5 % and Lactated Ring 1,000 ML 80 ML IVCONT ×2 (05:36→13:54)
[2024-05-29] MEDS: Pantoprazole Sodium 40 MG/10 ML VIAL IVPUSH ×2 (05:38→17:08)
[2024-05-29 05:45] LABS: Hematocrit 28.9 % (37.0-47.0); Hemoglobin 10.4 g/dl (12.0-16.0); Mean Corpuscular Hemoglobin 34.7 pg (27.0-33.0); Mean Corpuscular Volume 96.3 fL (80.0-98.0); Mean Platelet Volume 11.7 fL (9.4-12.3); NRBC Pct Auto 0.4 /100WBC (0.0-0.2); PLT CLUMP 1; Red Cell Distribution Width 13.5 % (11.0-16.0)
[2024-05-29 05:48] LABS: White Blood Count 5.1 X10*3/uL (4.8-10.8)
[2024-05-29 06:11] LABS: Alanine Aminotransferase 106 U/L (0-31); Albumin Level 2.9 g/dL (3.5-5.0); Alkaline Phosphatase 151 U/L (39-117); Anion Gap 13 (12-20); Aspartate Amino Transferase 290 U/L (5-31); Bilirubin Total 1.7 mg/dL (0.0-1.0); Blood Urea Nitrogen 4 mg/dL (9-16); Calcium 8.6 mg/dL (8.4-10.2); Carbon Dioxide 26 mmol/L (22-29); Chloride 98 mmol/L (96-108); Creatinine Clr Calc Pharmacy 68.7; Estimated Glomerular Filt Rate > 60; Glucose Random 175 mg/dL (60-115); Magnesium 1.6 mg/dL (1.6-2.6); Potassium 2.5 mmol/L (3.3-5.1); Sodium 134 mmol/L (135-145); Total Protein 5.1 g/dL (6.5-8.0)
[2024-05-29] MEDS: Potassium Chloride Packet 20 MEQ PACKET 40 MEQ PO (06:15)
[2024-05-29] MEDS: Potassium Chloride/H20 10 MEQ/100 ML PIGGYBACK 100 MEQ IV (06:24)
[2024-05-29] MEDS: Potassium Chloride/H20 10 MEQ/100 ML PIGGYBACK 50 MEQ IV ×3 (07:39→11:57)
[2024-05-29] MEDS: Enoxaparin Sodium 40 MG/0.4 ML SYRINGE SUBCUT (07:48)
[2024-05-29] MEDS: Nicotine 14 MG PATCH.TD24 TRANSDERMA (07:50)
[2024-05-29] MEDS: Folic Acid 1 MG TABLET PO (07:52)
[2024-05-29] MEDS: Magnesium Oxide 400 MG TABLET PO ×2 (07:53→17:08)
[2024-05-29] MEDS: Multivitamin TABLET 1 TAB PO (07:53)
[2024-05-29] MEDS: PHENobarbitaL 30 MG TABLET PO (07:53)
[2024-05-29 07:56] VITALS: BP 130/61; PULSE 64
[2024-05-29] MEDS: atenoloL 50 MG TABLET PO (07:56)
[2024-05-29 08:00] VITALS: BP 130/61; PULSE 64; RESP 16; TEMP 37.2; O2SAT 97
[2024-05-29] MEDS: 0.9 % Sodium Chloride Flush 3 ML SYRINGE IVFLUSH (08:07)
[2024-05-29] MEDS: Thiamine HCL 100 MG TABLET PO (08:08)
--- NOTE | 2024-05-29 08:41 | MHC.CM.PN ---
pt has a sitter lives with had no services pt to be seen by care team dc plan pending care team
--- NOTE | 2024-05-29 09:28 | HO.PM.IMPN ---
Subjective Subjective Date of Service: 05/29/24 Interval History: coughing abd pain improved, wishes to try solids Review of Systems Review of Systems: Yes all other systems are reviewed and are negative Physical Exam Vital Signs: Vital Signs: Last Vital Signs Temp 99 F 05/29/24 08:00 Pulse 64 05/29/24 08:00 Resp 16 05/29/24 08:00 BP 130/61 05/29/24 08:00 Pulse Ox 97 05/29/24 08:00 O2 Del Method Room Air 05/29/24 08:00 BMI result Body Mass Index 28.2 Gen: in no acute distress HEENT: sclera anicteric, moist mucus membranes Neck: supple Lungs: diminished, a few scattered wheezes Heart: regular rate and rhythm, no murmurs Abd: soft, mildly tender epigastrium, no rebound, non-distended Ext: no edema Skin: warm/well-perfused Neuro: alert and oriented x3, no focal findings Psych: restricted affect Objective Data Active Medications Acetaminophen (Acetaminophen 325 Mg Tablet) 650 mg PO Q6H PRN PRN Reason: Pain, Mild (Pain Scale 1-3), fever or headache Last Admin: 05/28/24 00:15 Dose: 650 mg Documented By: SUSANNE Albuterol Sulfate (Albuterol Sulfate 90 Mcg 8 Gm Inhaler) 2 puff INHALE Q4H PRN PRN Reason: Dyspnea Albuterol/Ipratropium (Albuterol/Iprat 2.5/0.5mg 3 Ml Ampul.Neb) 3 ml INHALE Q4H PRN PRN Reason: Wheezing Atenolol (Atenolol 50 Mg Tablet) 50 mg PO DAILY [facility]; Protocol Last Admin: 05/29/24 07:56 Dose: 50 mg Documented By: HERNAN Benzocaine (Throat Lozenge, Medicated Lozenge) 1 lozenge MUCOUS MEM Q2H PRN PRN Reason: Sore Throat Last Admin: 05/28/24 21:47 Dose: 1 lozenge Documented By: LACIE Calcium Carbonate (Calcium Carbonate 750 Mg Tab.Chew) 750 mg PO Q4H PRN PRN Reason: Heartburn Enoxaparin Sodium (Enoxaparin Sodium 40 Mg/0.4 Ml Syringe) 40 mg SUBCUT Q24H [facility] Last Admin: 05/29/24 07:48 Dose: 40 mg Documented By: HERNAN Fluticasone/Vilanterol (Fluticasone/Vilanterol 100/25 Blst.W.Dev) 1 puff INHALE RDAILY [facility] Last Admin: 05/29/24 07:46 Dose: Not Given Documented By: EPNG Non-Admin Reason: Patient Refused Folic Acid (Folic Acid 1 Mg Tablet) 1 mg PO DAILY [facility] Last Admin: 05/29/24 07:52 Dose: 1 mg Documented By: HERNAN Folic Acid (Folic Acid 1 Mg Tablet) 1 mg PO DAILY [facility] Last Admin: 05/29/24 07:52 Dose: Not Given Documented By: HERNAN Non-Admin Reason: duplicate Guaifenesin/Codeine Phosphate (Guaifen/Codeine Sf 200/20/10ml 10 Ml Liquid) 5 ml PO Q6H PRN PRN Reason: Cough Last Admin: 05/28/24 21:47 Dose: 5 ml Documented By: LACIE Azithromycin 500 mg/ Sodium (Chloride) 250 mls @ 125 mls/hr IV 2200 [facility] Last Infusion: 05/28/24 23:05 Dose: Infused Documented By: LACIE Dextrose/Lactated Ringer's (D5lr) 1,000 mls @ 80 mls/hr IVCONT .[id number] [facility] Last Infusion: 05/29/24 06:25 Dose: 0 mls/hr Documented By: LACIE Potassium Chloride (Potassium Chloride/H20) 10 meq in 100 mls @ 100 mls/hr IV Q1H [facility] Stop: 05/29/24 09:59 Last Admin: 05/29/24 07:39 Dose: 50 mls/hr Documented By: HERNAN Comments: Pt. stated burning, wanted to run at lower rate. Loperamide HCl (Loperamide Hcl 2 Mg Capsule) 2 mg PO BID [facility] Last Admin: 05/29/24 09:22 Dose: Not Given Documented By: HERNAN Non-Admin Reason: No BM couple days Magnesium Hydroxide (Milk Of Magnesia 30 Ml Oral.Susp) 30 ml PO DAILY PRN PRN Reason: Constipation Magnesium Oxide (Magnesium Oxide 400 Mg Tablet) 400 mg PO BIDPC [facility] Last Admin: 05/29/24 07:53 Dose: 400 mg Documented By: HERNAN Melatonin (Melatonin 3 Mg Tablet) 6 mg PO BEDTIME PRN PRN Reason: Insomnia Last Admin: 05/28/24 00:15 Dose: 6 mg Documented By: SUSANNE Methylprednisolone Sodium Succinate (Methylprednisolone Sod Succ 40 Mg/Ml Vial) 40 mg IVPUSH Q24H [facility] Last Admin: 05/28/24 13:31 Dose: 40 mg Documented By: HERNAN Mirtazapine (Mirtazapine 15 Mg Tablet) 15 mg PO BEDTIME [facility] Last Admin: 05/28/24 20:58 Dose: 15 mg Documented By: LACIE Multivitamins/Vitamin C (Multivitamin Tablet) 1 tab PO DAILY [facility] Last Admin: 05/29/24 07:53 Dose: 1 tab Documented By: HERNAN Nicotine (Nicotine 14 Mg Patch.Td24) 14 mg TRANSDERMA DAILY [facility] Last Admin: 05/29/24 07:50 Dose: 14 mg Documented By: HERNAN Ondansetron HCl (Ondansetron Hcl 4 Mg/2 Ml Vial) 4 mg IVPUSH Q4H PRN PRN Reason: Nausea and Vomiting Pantoprazole Sodium (Pantoprazole Sodium 40 Mg/10 Ml Vial) 40 mg IVPUSH BID@0630,1630 [facility] Last Admin: 05/29/24 05:38 Dose: 40 mg Documented By: LACIE Pharmacy Consult (Consult Rx Etoh Phenob Im/Po) 1 each MISCELLANE ONCE PRN; Protocol PRN Reason: Consult order Phenobarbital (Phenobarbital 15 Mg Tablet) 15 mg PO BID [facility]; Protocol Stop: 05/31/24 09:01 Phenobarbital (Phenobarbital 15 Mg Tablet) 15 mg PO DAILY [facility]; Protocol Stop: 06/02/24 09:01 Sodium Chloride (0.9 % Sodium Chloride Flush 3 Ml Syringe) 3 ml IVFLUSH QSHIFT [facility] Last Admin: 05/29/24 08:07 Dose: 3 ml Documented By: HERNAN Thiamine HCl (Thiamine Hcl 100 Mg Tablet) 100 mg PO DAILY [facility] Last Admin: 05/29/24 08:08 Dose: 100 mg Documented By: HERNAN Tiotropium [place] (Tiotropium [place] 2.5 Mcg 1 Puff/2.5 Mcg Mist.Inhal) 2 puff INHALE RDAILY [facility] Last Admin: 05/29/24 07:46 Dose: Not Given Documented By: PENG Non-Admin Reason: Patient Refused Labs 05/29/24 05:15 05/29/24 05:15 Labs: Laboratory Results - last 24 hr 05/29/24 05:15 MCV 96.3 MCH 34.7 H MCHC 36.0 H RDW 13.5 Plt Count TNP MPV 11.7 Absolute Nucleated RBC 0.020 H Nucleated RBC % (auto) 0.4 H Anion Gap 13 Estim Creat Clear Calc 68.7 Estimated GFR > 60 Random Glucose 175 H Calcium 8.6 D Magnesium 1.6 Total Bilirubin 1.7 H AST 290 H ALT 106 H Alkaline Phosphatase 151 H Total Protein 5.1 L Albumin 2.9 L Microbiology Microbiology Results: Microbiology 05/27/24 Unknown Urine Culture - Final Urine clean catch - Clean Catch Midstream Escherichia coli 05/26/24 22:20 Blood Culture - Preliminary Blood - Venous No growth after 48 hours. 05/26/24 22:20 Blood Culture - Preliminary Blood - Venous No growth after 48 hours. Assessment and Plan (1) Alcohol withdrawal: Status: Acute Plan d3 68yo F with AUD, HTN, COPD, mood disorder, tobacco abuse presenting with malaise + cough, dyspnea, wheeze; found to have EtOH withdrawal + ketoacidosis acute COPD exacerbation - continue steroids but change from IV methylprednisolone to PO prednisone, continue prn nebs, home inhalers, change azithromycin to cefuroxime hypoK, severe - replete IV/PO, recheck level in AM hypoMg - repleted; on PO maintenance UTI, E coli - cefuroxime 05/29-06/03 alcoholic ketoacidosis acute lactic acidosis due to alcohol - acidosis resolved alcoholic gastritis - IV PPI AUD with withdrawal - continue phenobarbital taper, thiamine, folate; Addiction Medicine consultation pending alcoholic hepatitis - mild; continue to monitor LFTs thrombocytopenia - mild; due to myelosuppression from EtOH; continue to monitor CBC HTN - atenolol tobacco abuse - NRT depression with SI - continue mirtazapine; CARE Team consult when medically cleared VTE ppx - LMWH dispo - TBD In my clinical judgment, the patient requires continued hospitalization for the following reasons: electrolyte abnormalities, inpt EtOH withdrawal treatment Total time managing care of this patient today: 40 minutes. Quality Stroke Does the patient have a stroke diagnosis?: No VTE Prior VTE?: No VTE Risk Level:: Medical - moderate - high VTE Device Contraindication: Treatment Not Indicated VTE Drug Contraindication: N/A - Med Ordered
[2024-05-29] MEDS: Potassium Chloride ER 20 MEQ TAB.ER.PRT 40 MEQ PO (09:51)
[2024-05-29] MEDS: Fluticasone/Vilanterol 100/25 BLST.W.DEV 1 PUFF INHALE (09:58)
[2024-05-29] MEDS: Tiotropium Bromide 2.5 mcg 1 PUFF/2.5 MCG MIST.INHAL 2 PUFF INHALE (09:58)
[2024-05-29] MEDS: cefuroxime axetiL 500 MG TABLET PO ×2 (10:33→21:19)
[2024-05-29] MEDS: predniSONE 20 MG TABLET 40 MG PO (10:33)
[2024-05-29] MEDS: Acetaminophen 325 MG TABLET 650 MG PO (12:00)
[2024-05-29] MEDS: guaiFEN/Codeine SF 200/20/10ML 10 ML LIQUID 5 ML PO ×2 (12:00→18:01)
--- NOTE | 2024-05-29 14:48 | MHC.RECOVRN ---
Attempted to meet with pt x 2 after pt scored positive on AUDIT C. Pt resting the first time and declined meeting. Returned later and pt asleep with lights off and sitter at bedside as she was up all night . ACS to return at a later time. Li Smith APRN, aware.
[2024-05-29] MEDS: Throat Lozenge, Medicated LOZENGE 1 LOZENGE MUCOUS MEM (18:01)
[2024-05-29] MEDS: Calcium Carbonate 750 MG TAB.CHEW PO (18:01)
--- NOTE | 2024-05-29 18:27 | PC.NURSE ---
[employer] and unopened pack of Cigarette was found by the pt's sitter inside pt's own napkin box, pt. stated that it was her . [employer] and the pack of Cigarette was taken by [employer] for storage on the black locker on [employer] unit.
[2024-05-29 19:22] VITALS: BP 110/58; PULSE 80; RESP 14; TEMP 36.6; O2SAT 99
[2024-05-29] MEDS: PHENobarbitaL 15 MG TABLET PO (21:19)
[2024-05-29] MEDS: Mirtazapine 15 MG TABLET PO (21:19)
[2024-05-30] VITALS (7 sets, daily range): BP systolic 105–132; BP diastolic 57–68; PULSE 63–102; RESP 12–22; TEMP 36.3–36.9; O2SAT 95–99
--- NOTE | 2024-05-30 | ECG_ITS ---
Test Reason : chest pain Blood Pressure : / mmHG Vent. Rate : 073 BPM Atrial Rate : 073 BPM P-R Int : 164 ms QRS Dur : 076 ms QT Int : 414 ms P-R-T Axes : 055 032 044 degrees QTc Int : 456 ms Normal sinus rhythm Nonspecific T wave abnormality Abnormal ECG When compared with ECG of 07-AUG-2015 14:07, Nonspecific T wave abnormality now evident in Inferior leads Nonspecific T wave abnormality, worse in Anterolateral leads Referred By: Delroy Eisenberg Electronically Signed By:MICHAEL HOANG
[2024-05-30] MEDS: Dextrose 5 % and Lactated Ring 1,000 ML 80 ML IVCONT ×2 (00:48→14:06)
[2024-05-30] MEDS: Pantoprazole Sodium 40 MG/10 ML VIAL IVPUSH ×2 (05:59→15:49)
[2024-05-30 06:43] LABS: Alanine Aminotransferase 134 U/L (0-31); Albumin Level 2.7 g/dL (3.5-5.0); Alkaline Phosphatase 151 U/L (39-117); Anion Gap 10 (12-20); Aspartate Amino Transferase 311 U/L (5-31); Bilirubin Total 1.1 mg/dL (0.0-1.0); Blood Urea Nitrogen 9 mg/dL (9-16); Calcium 8.2 mg/dL (8.4-10.2); Carbon Dioxide 28 mmol/L (22-29); Chloride 99 mmol/L (96-108); Creatinine Clr Calc Pharmacy 75.3; Estimated Glomerular Filt Rate > 60; Glucose Random 118 mg/dL (60-115); Magnesium 1.6 mg/dL (1.6-2.6); Potassium 3.3 mmol/L (3.3-5.1); Sodium 134 mmol/L (135-145); Total Protein 4.9 g/dL (6.5-8.0)
[2024-05-30 07:04] LABS: Hematocrit 29.5 % (37.0-47.0); Hemoglobin 10.2 g/dl (12.0-16.0); Mean Corpuscular HGB Conc 34.6 g/dl (31.0-35.0); Mean Corpuscular Volume 98.3 fL (80.0-98.0); Mean Platelet Volume 11.9 fL (9.4-12.3); NRBC Pct Auto 0.6 /100WBC (0.0-0.2); Platelet Count 108 X10*3/uL (160-400); Red Cell Distribution Width 14.2 % (11.0-16.0); White Blood Count 5.4 X10*3/uL (4.8-10.8)
[2024-05-30] MEDS: Tiotropium Bromide 2.5 mcg 1 PUFF/2.5 MCG MIST.INHAL 2 PUFF INHALE (08:52)
[2024-05-30] MEDS: Fluticasone/Vilanterol 100/25 BLST.W.DEV 1 PUFF INHALE (08:52)
[2024-05-30] MEDS: Enoxaparin Sodium 40 MG/0.4 ML SYRINGE SUBCUT (09:05)
[2024-05-30] MEDS: cefuroxime axetiL 500 MG TABLET PO ×2 (09:06→20:22)
[2024-05-30] MEDS: PHENobarbitaL 15 MG TABLET PO ×2 (09:06→20:20)
[2024-05-30] MEDS: Acetaminophen 325 MG TABLET 650 MG PO (09:07)
[2024-05-30] MEDS: predniSONE 20 MG TABLET 40 MG PO (09:07)
[2024-05-30] MEDS: Multivitamin TABLET 1 TAB PO (09:07)
[2024-05-30] MEDS: Loperamide HCl 2 MG CAPSULE PO ×2 (09:07→20:21)
[2024-05-30] MEDS: Thiamine HCL 100 MG TABLET PO (09:08)
[2024-05-30] MEDS: atenoloL 50 MG TABLET PO (09:08)
[2024-05-30] MEDS: Folic Acid 1 MG TABLET PO (09:08)
[2024-05-30] MEDS: Magnesium Oxide 400 MG TABLET PO ×2 (09:08→16:59)
[2024-05-30] MEDS: Nicotine 14 MG PATCH.TD24 TRANSDERMA (09:12)
[2024-05-30] MEDS: 0.9 % Sodium Chloride Flush 3 ML SYRINGE IVFLUSH ×2 (09:16→15:49)
--- NOTE | 2024-05-30 10:23 | P.PNIM_ITS ---
Subjective Subjective Date of Service: 05/30/24 Interval History: c/o chest pain worse with pressing on chest + coughing c/o back pain c/o abd pain nausea/vomiting improved no tremulousness Review of Systems Review of Systems: Yes all other systems are reviewed and are negative Physical Exam 2 Vital Signs: Vital Signs: Last Vital Signs Temp 98 F 05/30/24 07:58 Pulse 80 05/30/24 09:08 Resp 22 H 05/30/24 08:55 BP 127/66 05/30/24 09:08 Pulse Ox 95 05/30/24 07:58 O2 Del Method Room Air 05/30/24 07:58 BMI result Body Mass Index 28.2 Gen: in no acute distress HEENT: sclera anicteric, moist mucus membranes Neck: supple Lungs: diminished, a few scattered wheezes Heart: regular rate and rhythm, no murmurs Abd: soft, mildly tender epigastrium, no rebound, non-distended Ext: no edema, tenderness of sternum and mid-back Skin: warm/well-perfused Neuro: alert and oriented x3, no focal findings Psych: restricted affect Objective Data Active Medications Acetaminophen (Acetaminophen 325 Mg Tablet) 650 mg PO Q6H PRN PRN Reason: Pain, Mild (Pain Scale 1-3), fever or headache Last Admin: 05/30/24 09:07 Dose: 650 mg Documented By: JC Albuterol Sulfate (Albuterol Sulfate 90 Mcg 8 Gm Inhaler) 2 puff INHALE Q4H PRN PRN Reason: Dyspnea Albuterol/Ipratropium (Albuterol/Iprat 2.5/0.5mg 3 Ml Ampul.Neb) 3 ml INHALE Q4H PRN PRN Reason: Wheezing Atenolol (Atenolol 50 Mg Tablet) 50 mg PO DAILY RAY; Protocol Last Admin: 05/30/24 09:08 Dose: 50 mg Documented By: JC Benzocaine (Throat Lozenge, Medicated Lozenge) 1 lozenge MUCOUS MEM Q2H PRN PRN Reason: Sore Throat Last Admin: 05/29/24 18:01 Dose: 1 lozenge Documented By: HERNAN Calcium Carbonate (Calcium Carbonate 750 Mg Tab.Chew) 750 mg PO Q4H PRN PRN Reason: Heartburn Last Admin: 05/29/24 18:01 Dose: 750 mg Documented By: HERNAN Cefuroxime Axetil (Cefuroxime Axetil 500 Mg Tablet) 500 mg PO Q12H [facility] Stop: 06/02/24 21:31 Last Admin: 05/30/24 09:06 Dose: 500 mg Documented By: JC Enoxaparin Sodium (Enoxaparin Sodium 40 Mg/0.4 Ml Syringe) 40 mg SUBCUT Q24H [facility] Last Admin: 05/30/24 09:05 Dose: 40 mg Documented By: JC Fluticasone/Vilanterol (Fluticasone/Vilanterol 100/25 Blst.W.Dev) 1 puff INHALE RDAILY [facility] Last Admin: 05/30/24 08:52 Dose: 1 puff Documented By: JOHN Folic Acid (Folic Acid 1 Mg Tablet) 1 mg PO DAILY [facility] Last Admin: 05/30/24 09:08 Dose: 1 mg Documented By: JC Guaifenesin/Codeine Phosphate (Guaifen/Codeine Sf 200/20/10ml 10 Ml Liquid) 5 ml PO Q6H PRN PRN Reason: Cough Last Admin: 05/29/24 18:01 Dose: 5 ml Documented By: HERNAN Dextrose/Lactated Ringer's (D5lr) 1,000 mls @ 80 mls/hr IVCONT .[id number] [facility] Last Admin: 05/30/24 00:48 Dose: 80 mls/hr Documented By: LACIE Loperamide HCl (Loperamide Hcl 2 Mg Capsule) 2 mg PO BID [facility] Last Admin: 05/30/24 09:07 Dose: 2 mg Documented By: JC Magnesium Hydroxide (Milk Of Magnesia 30 Ml Oral.Susp) 30 ml PO DAILY PRN PRN Reason: Constipation Magnesium Oxide (Magnesium Oxide 400 Mg Tablet) 400 mg PO BIDPC [facility] Last Admin: 05/30/24 09:08 Dose: 400 mg Documented By: JC Melatonin (Melatonin 3 Mg Tablet) 6 mg PO BEDTIME PRN PRN Reason: Insomnia Last Admin: 05/28/24 00:15 Dose: 6 mg Documented By: SUSANNE Mirtazapine (Mirtazapine 15 Mg Tablet) 15 mg PO BEDTIME [facility] Last Admin: 05/29/24 21:19 Dose: 15 mg Documented By: LACIE Multivitamins/Vitamin C (Multivitamin Tablet) 1 tab PO DAILY [facility] Last Admin: 05/30/24 09:07 Dose: 1 tab Documented By: JC Nicotine (Nicotine 14 Mg Patch.Td24) 14 mg TRANSDERMA DAILY [facility] Last Admin: 05/30/24 09:12 Dose: 14 mg Documented By: JC Ondansetron HCl (Ondansetron Hcl 4 Mg/2 Ml Vial) 4 mg IVPUSH Q4H PRN PRN Reason: Nausea and Vomiting Pantoprazole Sodium (Pantoprazole Sodium 40 Mg/10 Ml Vial) 40 mg IVPUSH BID@0630,1630 [facility] Last Admin: 05/30/24 05:59 Dose: 40 mg Documented By: LACIE Pharmacy Consult (Consult Rx Etoh Phenob Im/Po) 1 each MISCELLANE ONCE PRN; Protocol PRN Reason: Consult order Phenobarbital (Phenobarbital 15 Mg Tablet) 15 mg PO BID [facility]; Protocol Stop: 05/31/24 09:01 Last Admin: 05/30/24 09:06 Dose: 15 mg Documented By: JC Phenobarbital (Phenobarbital 15 Mg Tablet) 15 mg PO DAILY [facility]; Protocol Stop: 06/02/24 09:01 Prednisone (Prednisone 20 Mg Tablet) 40 mg PO DAILY [facility] Last Admin: 05/30/24 09:07 Dose: 40 mg Documented By: JC Sodium Chloride (0.9 % Sodium Chloride Flush 3 Ml Syringe) 3 ml IVFLUSH QSHIFT [facility] Last Admin: 05/30/24 09:16 Dose: 3 ml Documented By: JC Thiamine HCl (Thiamine Hcl 100 Mg Tablet) 100 mg PO DAILY [facility] Last Admin: 05/30/24 09:08 Dose: 100 mg Documented By: JC Tiotropium [place] (Tiotropium [place] 2.5 Mcg 1 Puff/2.5 Mcg Mist.Inhal) 2 puff INHALE RDAILY [facility] Last Admin: 05/30/24 08:52 Dose: 2 puff Documented By: SARITAK Labs 05/30/24 05:25 05/30/24 05:25 Labs: Laboratory Results - last 24 hr 05/30/24 05:25 MCV 98.3 H MCH 34.0 H MCHC 34.6 RDW 14.2 Plt Count 108 L MPV 11.9 Absolute Nucleated RBC 0.030 H Nucleated RBC % (auto) 0.6 H Anion Gap 10 L Estim Creat Clear Calc 75.3 Estimated GFR > 60 Random Glucose 118 H Calcium 8.2 L Magnesium 1.6 Total Bilirubin 1.1 H AST 311 H ALT 134 H Alkaline Phosphatase 151 H Total Protein 4.9 L Albumin 2.7 L Microbiology Microbiology Results: Microbiology 05/27/24 Unknown Urine Culture - Final Urine clean catch - Clean Catch Midstream Escherichia coli Assessment and Plan (1) Alcohol withdrawal: Status: Acute Plan d4 68yo F with AUD, HTN, COPD, mood disorder, tobacco abuse presenting with malaise + cough, dyspnea, wheeze; found to have EtOH withdrawal + ketoacidosis atypical chest pain - probably from coughing + vomiting but will check EKG + cycle troponins; apply lidocaine patch acute COPD exacerbation - continue PO prednisone, continue prn nebs, home inhalers, changed azithromycin to cefuroxime 05/29- hypoK, severe - repleted hypoMg - repleted; on PO maintenance UTI, E coli - cefuroxime 05/29-06/03 alcoholic ketoacidosis acute lactic acidosis due to alcohol - acidosis resolved alcoholic gastritis - IV PPI AUD with withdrawal - continue phenobarbital taper, thiamine, folate; Addiction Medicine consult pending alcoholic hepatitis - mild; continue to monitor LFTs thrombocytopenia - mild; due to myelosuppression from EtOH; continue to monitor CBC HTN - atenolol tobacco abuse - NRT depression with SI - continue mirtazapine; CARE Team consult when medically cleared VTE ppx - LMWH dispo - PT consult In my clinical judgment, the patient requires continued hospitalization for the following reasons: inpt EtOH withdrawal treatment Total time managing care of this patient today: 35 minutes. Quality Stroke Does the patient have a stroke diagnosis?: No VTE Prior VTE?: No VTE Risk Level:: Medical - moderate - high VTE Device Contraindication: Treatment Not Indicated VTE Drug Contraindication: N/A - Med Ordered
[2024-05-30 10:39] LABS: Amylase 29 U/L (28-100); Lipase 59 U/L (8-78)
[2024-05-30] MEDS: Lidocaine 4 % Patch ADH..PATCH 2 PATCH TRANSDERMA (10:52)
--- NOTE | 2024-05-30 10:58 | PC.NURSE ---
CHRISTIANEG NSR, notified
[2024-05-30 13:02] LABS: Troponin-I High Sensitivity < 2.7 ng/L (<3.5-17.0)
[2024-05-30] MEDS: oxyCODONE HCl Immed Release 5 MG TABLET PO ×2 (15:48→20:21)
[2024-05-30] MEDS: Mirtazapine 15 MG TABLET PO (20:21)
[2024-05-31 02:45] VITALS: BP 141/65; PULSE 70; RESP 18; TEMP 36.3; O2SAT 98
[2024-05-31] MEDS: Dextrose 5 % and Lactated Ring 1,000 ML 80 ML IVCONT (02:48)
[2024-05-31] MEDS: oxyCODONE HCl Immed Release 5 MG TABLET PO ×4 (04:14→20:21)
[2024-05-31] MEDS: Throat Lozenge, Medicated LOZENGE 1 LOZENGE MUCOUS MEM (04:21)
[2024-05-31] MEDS: 0.9 % Sodium Chloride Flush 3 ML SYRINGE IVFLUSH (07:46)
[2024-05-31] MEDS: Pantoprazole Sodium 40 MG/10 ML VIAL IVPUSH (07:50)
[2024-05-31] MEDS: Magnesium Oxide 400 MG TABLET PO (07:50)
[2024-05-31] MEDS: Enoxaparin Sodium 40 MG/0.4 ML SYRINGE SUBCUT (07:50)
[2024-05-31] MEDS: atenoloL 50 MG TABLET PO (07:51)
[2024-05-31] MEDS: Loperamide HCl 2 MG CAPSULE PO ×2 (07:51→20:21)
[2024-05-31] MEDS: Folic Acid 1 MG TABLET PO (07:51)
[2024-05-31] MEDS: Multivitamin TABLET 1 TAB PO (07:51)
[2024-05-31] MEDS: predniSONE 20 MG TABLET 40 MG PO (07:51)
[2024-05-31] MEDS: Thiamine HCL 100 MG TABLET PO (07:51)
[2024-05-31] MEDS: Acetaminophen 325 MG TABLET 650 MG PO (07:51)
[2024-05-31] MEDS: PHENobarbitaL 15 MG TABLET PO (07:51)
[2024-05-31] MEDS: cefuroxime axetiL 500 MG TABLET PO ×2 (07:51→20:20)
[2024-05-31] MEDS: Nicotine 14 MG PATCH.TD24 TRANSDERMA (07:52)
[2024-05-31 07:56] VITALS: BP 111/57; PULSE 71; RESP 17; TEMP 36.8; O2SAT 99
[2024-05-31] MEDS: Tiotropium Bromide 2.5 mcg 1 PUFF/2.5 MCG MIST.INHAL 2 PUFF INHALE (08:29)
[2024-05-31] MEDS: Fluticasone/Vilanterol 100/25 BLST.W.DEV 1 PUFF INHALE (08:29)
[2024-05-31 08:30] VITALS: PULSE 78; RESP 19; O2SAT 100
--- NOTE | 2024-05-31 13:06 | HO.PM.IMPN ---
Subjective Subjective Date of Service: 05/31/24 Interval History: anxious, irritable; denies SI; no IPLOC per CARE Team diffuse body aches Review of Systems Review of Systems: Yes all other systems are reviewed and are negative Physical Exam Vital Signs: Vital Signs: Last Vital Signs Temp 98.2 F 05/31/24 07:56 Pulse 78 05/31/24 08:30 Resp 19 05/31/24 08:30 BP 111/57 L 05/31/24 07:56 Pulse Ox 99 05/31/24 07:56 O2 Del Method Room Air 05/31/24 07:56 BMI result Body Mass Index 28.2 Gen: in no acute distress HEENT: sclera anicteric, moist mucus membranes Neck: supple Lungs: CTABs Heart: regular rate and rhythm, no murmurs Abd: soft, mildly tender epigastrium, no rebound, non-distended Ext: no edema, tenderness of sternum and mid-back Skin: warm/well-perfused Neuro: alert and oriented x3, no focal findings Psych: irritable Objective Data Active Medications Acetaminophen (Acetaminophen 325 Mg Tablet) 650 mg PO Q6H PRN PRN Reason: Pain, Mild (Pain Scale 1-3), fever or headache Last Admin: 05/31/24 07:51 Dose: 650 mg Documented By: FRANKI Albuterol Sulfate (Albuterol Sulfate 90 Mcg 8 Gm Inhaler) 2 puff INHALE Q4H PRN PRN Reason: Dyspnea Albuterol/Ipratropium (Albuterol/Iprat 2.5/0.5mg 3 Ml Ampul.Neb) 3 ml INHALE Q4H PRN PRN Reason: Wheezing Atenolol (Atenolol 50 Mg Tablet) 50 mg PO DAILY [facility]; Protocol Last Admin: 05/31/24 07:51 Dose: 50 mg Documented By: FRANKI Benzocaine (Throat Lozenge, Medicated Lozenge) 1 lozenge MUCOUS MEM Q2H PRN PRN Reason: Sore Throat Last Admin: 05/31/24 04:21 Dose: 1 lozenge Documented By: MAICOL Calcium Carbonate (Calcium Carbonate 750 Mg Tab.Chew) 750 mg PO Q4H PRN PRN Reason: Heartburn Last Admin: 05/29/24 18:01 Dose: 750 mg Documented By: HERNAN Cefuroxime Axetil (Cefuroxime Axetil 500 Mg Tablet) 500 mg PO Q12H [facility] Stop: 06/02/24 21:31 Last Admin: 05/31/24 07:51 Dose: 500 mg Documented By: RFANKI Enoxaparin Sodium (Enoxaparin Sodium 40 Mg/0.4 Ml Syringe) 40 mg SUBCUT Q24H [facility] Last Admin: 05/31/24 07:50 Dose: 40 mg Documented By: FRANKI Fluticasone/Vilanterol (Fluticasone/Vilanterol 100/25 Blst.W.Dev) 1 puff INHALE RDAILY [facility] Last Admin: 05/31/24 08:29 Dose: 1 puff Documented By: JOHN Folic Acid (Folic Acid 1 Mg Tablet) 1 mg PO DAILY [facility] Last Admin: 05/31/24 07:51 Dose: 1 mg Documented By: FRANKI Guaifenesin/Codeine Phosphate (Guaifen/Codeine Sf 200/20/10ml 10 Ml Liquid) 5 ml PO Q6H PRN PRN Reason: Cough Last Admin: 05/29/24 18:01 Dose: 5 ml Documented By: HERNAN Dextrose/Lactated Ringer's (D5lr) 1,000 mls @ 80 mls/hr IVCONT .[id number] [facility] Last Admin: 05/31/24 02:48 Dose: 80 mls/hr Documented By: MAICOL Lidocaine (Lidocaine 4 % Patch Adh..Patch) 2 patch TRANSDERMA DAILY [facility]; Protocol Last Admin: 05/31/24 07:52 Dose: Not Given Documented By: FRANKI Non-Admin Reason: Patient Refused Loperamide HCl (Loperamide Hcl 2 Mg Capsule) 2 mg PO BID [facility] Last Admin: 05/31/24 07:51 Dose: 2 mg Documented By: FRANKI Magnesium Hydroxide (Milk Of Magnesia 30 Ml Oral.Susp) 30 ml PO DAILY PRN PRN Reason: Constipation Magnesium Oxide (Magnesium Oxide 400 Mg [facility]t) [facility] Last Admin: 05/31/24 07:50 Dose: 400 mg Documented By: FRANKI Melatonin (Melatonin 3 Mg Tablet) 6 mg PO BEDTIME PRN PRN Reason: Insomnia Last Admin: 05/28/24 00:15 Dose: 6 mg Documented By: SUSANNE Mirtazapine (Mirtazapine 15 Mg Tablet) 15 mg PO BEDTIME [facility] Last Admin: 05/30/24 20:21 Dose: 15 mg Documented By: MAICOL Multivitamins/Vitamin C (Multivitamin Tablet) 1 tab PO DAILY [facility] Last Admin: 05/31/24 07:51 Dose: 1 tab Documented By: FRANKI Nicotine (Nicotine 14 Mg Patch.Td24) 14 mg TRANSDERMA DAILY [facility] Last Admin: 05/31/24 07:52 Dose: 14 mg Documented By: FRANKI Ondansetron HCl (Ondansetron Hcl 4 Mg/2 Ml Vial) 4 mg IVPUSH Q4H PRN PRN Reason: Nausea and Vomiting Oxycodone HCl (Oxycodone Hcl Immed Release 5 Mg Tablet) 5 mg PO Q4H PRN PRN Reason: severe pain Last Admin: 05/31/24 11:26 Dose: 5 mg Documented By: FRANKI Pantoprazole Sodium (Pantoprazole Sodium 40 Mg/10 Ml Vial) 40 mg IVPUSH BID@0630,1630 [facility] Last Admin: 05/31/24 07:50 Dose: 40 mg Documented By: FRANKI Pharmacy Consult (Consult Rx Etoh Phenob Im/Po) 1 each MISCELLANE ONCE PRN; Protocol PRN Reason: Consult order Phenobarbital (Phenobarbital 15 Mg Tablet) 15 mg PO DAILY [facility]; Protocol Stop: 06/02/24 09:01 Prednisone (Prednisone 20 Mg Tablet) 40 mg PO DAILY [facility] Last Admin: 05/31/24 07:51 Dose: 40 mg Documented By: FRANKI Sodium Chloride (0.9 % Sodium Chloride Flush 3 Ml Syringe) 3 ml IVFLUSH QSHIFT [facility] Last Admin: 05/31/24 07:46 Dose: 3 ml Documented By: FRANKI Thiamine HCl (Thiamine Hcl 100 Mg Tablet) 100 mg PO DAILY [facility] Last Admin: 05/31/24 07:51 Dose: 100 mg Documented By: FRANKI Tiotropium [place] (Tiotropium [place] 2.5 Mcg 1 Puff/2.5 Mcg Mist.Inhal) 2 puff INHALE RDAILY [facility] Last Admin: 05/31/24 08:29 Dose: 2 puff Documented By: HO.REILLK Labs 05/30/24 05:25 05/30/24 05:25 Assessment and Plan (1) Alcohol withdrawal: Status: Acute Plan d4 68yo F with AUD, HTN, COPD, mood disorder, tobacco abuse presenting with malaise + cough, dyspnea, wheeze; found to have EtOH withdrawal + ketoacidosis atypical chest pain - probably from coughing + vomiting; use lidocaine patch acute COPD exacerbation - continue PO prednisone, continue prn nebs, home inhalers, changed azithromycin to cefuroxime 05/29-06/03 hypoK, severe - repleted hypoMg - repleted; on PO maintenance UTI, E coli - cefuroxime 05/29-06/03 alcoholic ketoacidosis acute lactic acidosis due to alcohol - acidosis resolved alcoholic gastritis - PPI AUD with withdrawal - continue phenobarbital taper, thiamine, folate; Addiction Medicine consulted but pt refused to meet alcoholic hepatitis - mild; continue to monitor LFTs thrombocytopenia - mild; due to myelosuppression from EtOH; continue to monitor CBC HTN - atenolol tobacco abuse - NRT depression with SI - continue mirtazapine; per CARE Team d/c sitter and no IPLOC VTE ppx - LMWH dispo - PT consult: [facility] vs STR but pt refusing treatment today, dispo In my clinical judgment, the patient requires continued hospitalization for the following reasons: inpt EtOH withdrawal treatment Total time managing care of this patient today: 35 minutes. Quality Stroke Does the patient have a stroke diagnosis?: No VTE Prior VTE?: No VTE Risk Level:: Medical - moderate - high VTE Device Contraindication: Treatment Not Indicated VTE Drug Contraindication: N/A - Med Ordered
--- NOTE | 2024-05-31 14:40 | MHC.CM.PN ---
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
--- NOTE | 2024-05-31 15:16 | P.DS_ITS ---
DS: Providers Provider Date of Service: 05/31/24 Date of admission: 05/27/24 01:57 Primary care physician: Vinnie Cook MD Consults: 05/27/24 01:57 Addiction Medicine Routine Consulting Provider: Addiction Covering Reason for consultation: alcohol use disorder 05/31/24 09:02 Consult to Care Team Routine Comment: Reason for consultation: SI on admission; medically cleared; severe anxiety + AUD DS: Diagnosis Discharge Diagnosis (1) Alcohol withdrawal: Status: Acute (2) Alcoholic ketoacidosis: Status: Acute (3) COPD exacerbation: Status: Acute (4) Tobacco use disorder: Status: Acute (5) Alcohol use disorder: Status: Acute (6) Hypomagnesemia: Status: Acute (7) Urinary tract infection: Status: Acute DS: Summary Hospital Course Hospital Course: From the history and physical by the admitting hospitalist, Dmitriy Mancini MD, 05/27/24: This is a 68-year-old female with pertinent history of alcohol use disorder, hypertension, COPD not on home oxygen, mood disorder, tobacco use disorder who presents to the emergency department for evaluation of not feeling well . Patient has multiple complaints and states she has not been feeling well for a week. States she has had upper respiratory symptoms with runny nose, sore throat and headache. Soon it progressed and patient started having dyspnea which was worse with exertion and wheezing. Has associated cough with minimal clear sputum production. Patient admits generalized weakness with poor p.o. intake. States her last alcoholic drink was 1 day prior to presentation. No history of alcohol withdrawal seizures. No fever, chills, chest discomfort, palpitations, abdominal pain, changes in urinary or bowel habits. In the emergency department, patient was initiated on phenobarb protocol. Also found to have anion gap metabolic acidosis. 68yo F with AUD, HTN, COPD, mood disorder, tobacco abuse presenting with malaise + cough, dyspnea, wheeze; found to have EtOH withdrawal + ketoacidosis and admitted to the medical-surgical unit. Hospital course by problem: AUD with withdrawal - Treated with phenobarbital taper and supplemented with thiamine and folate; Addiction Medicine consulted but pt refused to meet. Resumed acamprosate upon discharge and counseled on importance of sobriety. alcoholic gastritis - Started on PPI. alcoholic ketoacidosis acute lactic acidosis due to alcohol - Acidosis resolved with fluid resuscitation. atypical chest pain - Probably from coughing + vomiting; placed on lidocaine patch. acute COPD exacerbation - Treated with 5 days of PO prednisone plus nebs. Also got cefuroxime for UTI which should also cover COPD. hypoMg - Repleted; started on PO maintenance UTI - [place]-sensitive E coli, treated with PO cefuroxime; discharged on 3 more days. depression with SI - Continue mirtazapine. Assessed by CARE Team and deemed not to be a threat to self or others; patient denied SI. IPLOC not recommended. Due to weakness and balance deficits, the patient was discharged to short-term rehabilitation at a SNF; anticipated length of stay less than 30 days. Time Attestation Discharge Coordination Time (in mins): 45 Quality: Safe Use of Opioids Does Pt have an Active Cancer Diagnosis on the Problem List?: No Quality: Stroke Does the patient have a stroke diagnosis?: No Physical Exam Vital Signs: Vital Signs: Last Vital Signs Temp 98.2 F 05/31/24 07:56 Pulse 78 05/31/24 08:30 Resp 19 05/31/24 08:30 BP 111/57 L 05/31/24 07:56 Pulse Ox 99 05/31/24 07:56 O2 Del Method Room Air 05/31/24 07:56 BMI result Body Mass Index 28.2 Gen: in no acute distress HEENT: sclera anicteric, moist mucus membranes Neck: supple Lungs: CTAB Heart: regular rate and rhythm, no murmurs Abd: soft, mildly tender epigastrium, no rebound, non-distended Ext: no edema, tenderness of sternum and mid-back Skin: warm/well-perfused Neuro: alert and oriented x3, no focal findings Psych: irritable DS: Data Data Completed and Pending Completed studies during hospitalization [Text1]: Laboratory Results WBC 5.4 X10*3/uL (4.8-10.8) 05/30/24 05:25 RBC 3.00 X10*6/uL (4.20-5.50) L 05/30/24 05:25 Hgb 10.2 g/dl (12.0-16.0) L 05/30/24 05:25 Hct 29.5 % (37.0-47.0) L 05/30/24 05:25 MCV 98.3 fL (80.0-98.0) H 05/30/24 05:25 MCH 34.0 pg (27.0-33.0) H 05/30/24 05:25 MCHC 34.6 g/dl (31.0-35.0) 05/30/24 05:25 RDW 14.2 % (11.0-16.0) 05/30/24 05:25 Plt Count 108 X10*3/uL (160-400) L 05/30/24 05:25 MPV 11.9 fL (9.4-12.3) 05/30/24 05:25 Immature Gran % (Auto) 0.3 % (0.0-0.4) 05/27/24 02:29 Neut % (Auto) 65.3 % (45-73) 05/27/24 02:29 Lymph % (Auto) 24.1 % (20-40) 05/27/24 02:29 [place] % (Auto) 9.5 % (2-11) 05/27/24 02:29 Eos % (Auto) 0.3 % (0-4) 05/27/24 02:29 Baso % (Auto) 0.5 % (0-2) 05/27/24 02:29 Lymph # (Auto) 0.9 X10*3/uL (1.2-4.9) L 05/27/24 02:29 [place] # (Auto) 0.4 X10*3/uL (0.1-1.2) 05/27/24 02:29 Eos # (Auto) 0.0 X10*3/uL (0.0-0.4) 05/27/24 02:29 Baso # (Auto) 0.0 X10*3/uL (0.0-0.2) 05/27/24 02:29 Abs Immat Gran (auto) 0.01 X10*3/uL (0.00-0.03) 05/27/24 02:29 Absolute Neuts (auto) 2.4 x10*3/uL (2.0-8.3) 05/27/24 02:29 Absolute Nucleated RBC 0.030 X10*3/uL (0.0-0.012) H 05/30/24 05:25 Nucleated RBC % (auto) 0.6 /100WBC (0.0-0.2) H 05/30/24 05:25 VBG pH 7.62 (7.32-7.43) H* 05/28/24 05:46 VBG pCO2 25 mmHg 05/28/24 05:46 VBG pO2 230 mmHg 05/28/24 05:46 VBG HCO3 27 mmol/L (22-26) H 05/28/24 05:46 VBG O2 Saturation 99.0 % 05/28/24 05:46 VBG Base Excess 6.8 mmol/L 05/28/24 05:46 Sodium 134 mmol/L (135-145) L 05/30/24 05:25 Potassium 3.3 mmol/L (3.3-5.1) D 05/30/24 05:25 Chloride 99 mmol/L (96-108) 05/30/24 05:25 Carbon Dioxide 28 mmol/L (22-29) 05/30/24 05:25 Anion Gap 10 (12-20) L 05/30/24 05:25 BUN 9 mg/dL (9-16) 05/30/24 05:25 Creatinine 0.62 mg/dL (0.5-1.4) 05/30/24 05:25 Estim Creat Clear Calc 75.3 05/30/24 05:25 Estimated GFR > 60 05/30/24 05:25 Random Glucose 118 mg/dL (60-115) H 05/30/24 05:25 Lactic Acid 3.8 mmol/L (0.5-2.0) H* 05/26/24 22:21 Lactic Acid F/U @ 2Hr 3.8 mmol/L (0.5-2.0) H* 05/27/24 02:29 Lactic Acid F/U @ 4Hr 2.6 mmol/L (0.5-2.0) H* 05/27/24 05:20 Calcium 8.2 mg/dL (8.4-10.2) L 05/30/24 05:25 Magnesium 1.6 mg/dL (1.6-2.6) 05/30/24 05:25 Total Bilirubin 1.1 mg/dL (0.0-1.0) H 05/30/24 05:25 AST 311 U/L (5-31) H 05/30/24 05:25 ALT 134 U/L (0-31) H 05/30/24 05:25 Alkaline Phosphatase 151 U/L (39-117) H 05/30/24 05:25 Troponin I High Sens < 2.7 ng/L (<3.5-17.0) 05/30/24 12:35 Total Protein 4.9 g/dL (6.5-8.0) L 05/30/24 05:25 Albumin 2.7 g/dL (3.5-5.0) L 05/30/24 05:25 Amylase 29 U/L (28-100) 05/30/24 05:25 Lipase 59 U/L (8-78) 05/30/24 05:25 Vitamin B12 317 pg/mL (200-900) 05/28/24 05:32 Folate 6.2 ng/mL (> or = 4.0) 05/28/24 05:32 Beta-Hydroxybutyrate 5.67 mmol/L (0.02-0.27) H 05/26/24 19:58 Specimen Comment DELAY 05/26/24 23:50 Urine Color Cancelled 05/27/24 11:57 Urine Appearance Cancelled 05/27/24 11:57 Urine pH Cancelled 05/27/24 11:57 Ur Specific [place] Cancelled 05/27/24 11:57 Urine Protein Cancelled 05/27/24 11:57 Urine Glucose (UA) Cancelled 05/27/24 11:57 Urine Ketones Cancelled 05/27/24 11:57 Urine Blood Cancelled 05/27/24 11:57 Urine Nitrite Cancelled 05/27/24 11:57 Ur Leukocyte Esterase Cancelled 05/27/24 11:57 Urine RBC Cancelled 05/27/24 11:57 Urine WBC Cancelled 05/27/24 11:57 Urine WBC Clumps Cancelled 05/27/24 11:57 Ur Squamous Epith Cells Cancelled 05/27/24 11:57 Ur Transition Epith Cell Cancelled 05/27/24 11:57 Ur Renal Epithelial Cell Cancelled 05/27/24 11:57 Calcium Oxalate Crystal Cancelled 05/27/24 11:57 Leucine Crystals Cancelled 05/27/24 11:57 Cystine Crystals Cancelled 05/27/24 11:57 Tyrosine Crystals Cancelled 05/27/24 11:57 Other Crystals Cancelled 05/27/24 11:57 Urine Bacteria Cancelled 05/27/24 11:57 Urine Parasites Cancelled 05/27/24 11:57 Bilirubin Casts Cancelled 05/27/24 11:57 Epithelial Casts Cancelled 05/27/24 11:57 Fatty Casts Cancelled 05/27/24 11:57 Hyaline Casts Cancelled 05/27/24 11:57 Granular Casts Cancelled 05/27/24 11:57 Waxy Casts Cancelled 05/27/24 11:57 Broad Casts Cancelled 05/27/24 11:57 RBC Casts Cancelled 05/27/24 11:57 WBC Casts Cancelled 05/27/24 11:57 Other Casts Cancelled 05/27/24 11:57 Urine Trichomonas Cancelled 05/27/24 11:57 Urine Yeast Cancelled 05/27/24 11:57 Urine Opiates Screen POSITIVE (Not Detect) H 05/27/24 11:57 Ur Buprenorphine Scrn Not Detected ng/mL (Not Detect) 05/27/24 11:57 Ur Oxycodone Screen Not Detected ng/mL (Not Detect) 05/27/24 11:57 Urine Methadone Screen Not Detected ng/mL (Not Detect) 05/27/24 11:57 Urine Fentanyl Screen Not Detected (Not Detect) 05/27/24 11:57 Acetaminophen < 3 mcg/mL (<30) 05/26/24 22:21 Ur Barbiturates Screen POSITIVE (Not Detect) H 05/27/24 11:57 Ur Phencyclidine Scrn Not Detected (Not Detect) 05/27/24 11:57 Ur Amphetamines Screen Not Detected (Not Detect) 05/27/24 11:57 U Benzodiazepines Scrn Not Detected (Not Detect) 05/27/24 11:57 Urine Cocaine Screen Not Detected (Not Detect) 05/27/24 11:57 U Marijuana (THC) Screen Not Detected (Not Detect) 05/27/24 11:57 Ethyl Alcohol 127 mg/dL 05/26/24 22:20 Influenza Type A (PCR) NEGATIVE (Negative) 05/26/24 19:49 Influenza Type B (PCR) NEGATIVE (Negative) 05/26/24 19:49 RSV RNA Qual (PCR) NEGATIVE (Negative) 05/26/24 19:49 SARS-CoV-2 RNA (RT-PCR) NEGATIVE (Negative) 05/26/24 19:49 S. pyogenes GrpA GREGORY Negative (Negative) 05/26/24 19:49 Impressions Chest X-Ray 05/26/24 19:35 IMPRESSION: No acute finding. Electronically signed by: Mario Giraldo MD 05/26/2024 09:03 PM EDT RP Abdomen/Pelvis CT 05/26/24 20:54 IMPRESSION: Question mild ileus. No acute inflammatory process identified. Decreased bone mineral density. Severe compression deformity of T12, age indeterminate. Mild retropulsion and narrowing of the spinal canal at this level. Recommend clinical correlation. Additional findings, as above. Electronically signed by: Mario Giraldo MD 05/26/2024 10:09 PM EDT RP Discharge Plan Discharge Anticipated Discharge Date/Time: 05/31/24 13:05 Patient Disposition: Xfer SNF Discharge Diagnosis: alcohol use disorder with withdrawal syndrome COPD exacerbation urinary tract infection low magnesium alcoholic gastritis [facility] Vinnie Cook MD [Primary Care Provider] - 1 Week Discharge Medications: New nicotine 14 mg/24 hr Patch 24 Hour 14 mg transdermal DAILY Qty: 30 0RF lidocaine [Lidocaine Pain Relief] 4 % Adhesive Patch,Medicated 2 patch transdermal DAILY Qty: 60 0RF Protocol: Apply to: Apply to: left chest wall and mid-back magnesium oxide 400 mg (241.3 mg magnesium) Tablet 400 mg PO BIDPC Qty: 60 0RF cefuroxime axetil 500 mg Tablet 500 mg PO Q12H Qty: 6 0RF thiamine mononitrate (vit B1) 100 mg Tablet 100 mg PO DAILY Qty: 30 0RF omeprazole 20 mg capsule,delayed release(DR/EC) 20 mg PO DAILY Qty: 30 0RF Continued fluticasone propion-salmeterol 250-50 mcg/dose blister with device 1 ea inhalation BID loperamide 2 mg capsule 2 mg PO BID mirtazapine 15 mg tablet 15 mg PO BEDTIME atenolol 50 mg tablet 50 mg PO DAILY tiotropium bromide 18 mcg capsule, w/inhalation device 1 cap inhalation DAILY albuterol sulfate 90 mcg/actuation HFA aerosol inhaler 2 inh inhalation Q4-6H PRN (Reason: Dyspnea) folic acid 1 mg tablet 800 mcg PO DAILY acamprosate 333 mg tablet,delayed release (DR/EC) 666 mg PO TID Discharge Orders: Discharge Order (Routine); Ordered 05/31/24 Ordered By: Delroy Eisenberg Diet: Advance to usual diet Activity on Discharge: As tolerated Stand Alone Forms: Patient Portal Discharge page Print Language: Russian Care Plan Goals: sobriety Health Concerns: alcohol use disorder with withdrawal syndrome - maintain sobriety; continue acamprosate - take thiamine and folate as prescribed COPD exacerbation - completed prednisone - quit smoking; use nicotine patch urinary tract infection - cefuroxime 500 mg twice daily for 3 days low magnesium - magnesium oxide 400 mg twice daily alcoholic gastritis - take omeprazole 20 mg once daily Plan of Treatment: as above Assessment: See Discharge Summary.
[2024-05-31 15:25] VITALS: BP 113/57; PULSE 71; RESP 17; TEMP 37.2; O2SAT 97
[2024-05-31 19:30] VITALS: BP 113/61; PULSE 74; RESP 16; TEMP 36.6; O2SAT 96
[2024-05-31] MEDS: Mirtazapine 15 MG TABLET PO (20:20)
== END 2024-05-31 22:12 | disposition skilled nursing facility (03) | DRG 191 ==
LOC: HO.ED 23:17 → HO.EDOVER 05-27 02:05 → HO.S3 05-27 20:25
PROVIDERS: Physician Assistant; Admitting Provider Student in an Organized Health Care Education/Training Program; Emergency Provider Emergency Medicine; PCP Pediatrics; Visit Provider Family Medicine
DX: J44.1 Chronic obstructive pulmonary disease with (acute) exacerbation (principal); E87.29 Other acidosis; R45.851 Suicidal ideations; F10.930 Alcohol use, unspecified with withdrawal, uncomplicated; N39.0 Urinary tract infection, site not specified; F32.A Depression, unspecified; K70.10 Alcoholic hepatitis without ascites; E87.6 Hypokalemia; E83.42 Hypomagnesemia; K29.20 Alcoholic gastritis without bleeding; Y90.6 Blood alcohol level of 120-199 mg/100 ml; D69.59 Other secondary thrombocytopenia; D75.89 Other specified diseases of blood and blood-forming organs; I10 Essential (primary) hypertension; B96.20 Unspecified Escherichia coli [E. coli] as the cause of diseases classified elsewhere; Z20.822 Contact with and (suspected) exposure to COVID-19; Z79.51 Long term (current) use of inhaled steroids; Z79.899 Other long term (current) drug therapy
CPT/HCPCS: 0241U; 36415; 71045; 74177; 80048; 80053; 80143; 80307; 81001; 82010; 82150; 82607; 82746; 82803; 83605; 83690; 83735; 84484; 85025; 85027; 87040; 87086; 87088; 87186; 87651; 93005; 94640; 97162; 99285; J0456; J1650; J2270; J2405; J2470; J2560; J2919; J3411; J3475; J3480; Q9967; S9485

== ENCOUNTER → 2024-05-27 01:57 | Outpatient (BNV) | payer MEDICARE, BC, SELFPAY | PROVIDERS: Admitting Provider Student in an Organized Health Care Education/Training Program; Emergency Provider Emergency Medicine; PCP Pediatrics; Visit Provider Student in an Organized Health Care Education/Training Program | DX: J44.1 Chronic obstructive pulmonary disease with (acute) exacerbation (principal); F10.939 Alcohol use, unspecified with withdrawal, unspecified; E87.29 Other acidosis; F17.200 Nicotine dependence, unspecified, uncomplicated; E83.42 Hypomagnesemia; N39.0 Urinary tract infection, site not specified | CPT/HCPCS: 99222; 99232; 99239; 99499 ==